=== PATIENT | male | born 1945 | race Caucasian/White ===

== ENCOUNTER 2017-04-30 03:15 | Emergency (ER) | payer MEDICARE, BC ==
--- NOTE | 2017-04-30 09:03 | RAD ---
CHEST 1 VIEW: HISTORY: Partial removal of right upper extremity PICC. FINDINGS: The cardiac silhouette is magnified and enlarged. Patchy bibasilar infiltrates are present. Pulmon ann vasculature is upper limits of normal. At the far right margin of the image, a small cylindrica l density has the appearance of a tip of a PICC catheter overlying the right brachial vein. IMPRESSION: 1. Mild pulmonary vascular congestion. 2. Tip of the right upper extremity PICC appears to overlie the right brachial vein. Please retain position of that catheter or replacement under sterile conditions. POS: [facility]
== END 2017-04-30 05:14 | disposition home or self-care (01) ==
LOC: ERS 03:15
DX: T82.49XA Other complication of vascular dialysis catheter, initial encounter (principal); I25.10 Atherosclerotic heart disease of native coronary artery without angina pectoris; I11.0 Hypertensive heart disease with heart failure; I27.20 Pulmonary hypertension, unspecified; I50.9 Heart failure, unspecified; E11.9 Type 2 diabetes mellitus without complications; Z87.891 Personal history of nicotine dependence; Z79.82 Long term (current) use of aspirin; Z79.899 Other long term (current) drug therapy
CPT/HCPCS: 71010

== ENCOUNTER → 2017-05-01 | Day surgery (SDC) | payer MEDICARE, BC ==
--- NOTE | 2017-05-01 16:05 | SPC ---
RIGHT UPPER EXTREMITY PICC EXCHANGE: Date: 05-01-17 Comparison: 04-12-17 History: 71-year-old male with inadvertently partially removed right upper extremity PICC. FINDINGS: The pre-existing partially removed right upper extremity PICC is prepped and draped in normal steril e fashion. The PICC is cut and a wire is advanced through the pre-existing PICC to the cavoatrial ju nction. The PICC is removed and the new PICC is cut to 39 cm. A peel-away sheath was placed. The cut PICC is advanced over the wire. The wire and peel-away sheath are removed. The tip of the catheter overlies the cavoatrial junction. The catheter flushes well and is ready for use. IMPRESSION: Successful right upper extremity PICC exchange with fluoroscopic guidance. POS: [facility]
== END ==
LOC: SPEC 13:18
PROVIDERS: ATTEND Family Medicine
PROC: 05H933Z Insertion of Infusion Device into Right Brachial Vein, Percutaneous Approach (ICD-10-PCS; principal; 2017-05-01)
DX: Z45.2 Encounter for adjustment and management of vascular access device (principal); E11.22 Type 2 diabetes mellitus with diabetic chronic kidney disease; I13.0 Hypertensive heart and chronic kidney disease with heart failure and stage 1 through stage 4 chronic kidney disease, or unspecified chronic kidney disease; N18.9 Chronic kidney disease, unspecified; I50.23 Acute on chronic systolic (congestive) heart failure; I48.2 Chronic atrial fibrillation; I25.10 Atherosclerotic heart disease of native coronary artery without angina pectoris; G47.33 Obstructive sleep apnea (adult) (pediatric); E78.5 Hyperlipidemia, unspecified; I42.9 Cardiomyopathy, unspecified; Z79.01 Long term (current) use of anticoagulants; Z88.6 Allergy status to analgesic agent; Z88.8 Allergy status to other drugs, medicaments and biological substances; Z91.048 Other nonmedicinal substance allergy status; Z79.899 Other long term (current) drug therapy; Z79.4 Long term (current) use of insulin; Z87.891 Personal history of nicotine dependence; Z99.89 Dependence on other enabling machines and devices
CPT/HCPCS: 36569; C1751

== ENCOUNTER 2017-05-03 15:03 | Inpatient (IN) | payer MEDICARE, BC ==
[2017-05-03 15:56] LABS: Lactic Acid - Sepsis 1.4 mmol/L (0.5-2.2)
[2017-05-03 15:59] LABS: Bilirubin Negative (Negative); Blood, Urine Moderate (Negative); Glucose, Urine (Dipstick) Negative (Negative); Ketone, Urine Negative (Negative); Nitrite Negative (Negative); Protein, Urine (Dipstick) Trace mg/dL (Neg-Trace); Urobilinogen 0.2 mg/dL (0.2-1.0)
[2017-05-03 16:00] LABS: ALT (SGPT) 17 U/L (8-55); AST (SGOT) 19 U/L (5-34); Alkaline Phosphatase 89 U/L (40-150); Anion Gap 18 mmol/L (10-20); BUN (Urea Nitrogen) 92 mg/dL (8.4-25.7); Bilirubin, Total 0.8 mg/dL (0.2-1.2); Calc. Creatinine Clearance 0 mL/min (70-130); Calcium 8.9 mg/dL (7.8-10.44); Carbon Dioxide 26 mmol/L (23-31); Chloride 95 mmol/L (98-107); Estimated GFR-MDRD 17; Globulin 2.7 g/dL (2.4-3.5); Protein, Total 5.7 g/dL (5.8-8.1)
[2017-05-03 16:01] LABS: Bacteria/HPF None Seen HPF (None Seen); Hyaline Casts/LPF 7-10 HYALINE CAST LPF (0-3 Hyaline); RBC/HPF 0-3 HPF (0-3); Squamous Epithelial None Seen HPF (0-3); WBC/HPF 0-3 HPF (0-3)
[2017-05-03 16:01] LABS: #Basophils 0.1 thou/uL (0.0-0.2); #Eosinphils 0.1 thou/uL (0.0-0.7); #Lymphocytes 0.9 thou/uL (1.20-3.40); #Monocytes 0.8 thou/uL (0.11-0.59); #Neutrophils 5.9 thou/uL (1.40-6.50); %Basophils 0.9 % (0.0-1.0); %Eosinophils 1.2 % (0.0-10.0); %Lymphocytes 12.2 % (21.0-51.0); %Monocytes 9.9 % (0.0-10.0); Mean Platelet Volume 8.9 fL (7.4-10.4); Red Blood Cell (RBC) Count 3.81 mill/uL (4.70-6.10); White Blood Cell (WBC) Count 7.8 thou/uL (4.8-10.8)
--- NOTE | 2017-05-03 16:24 | RAD ---
PORTABLE CHEST 1 VIEW: DATE: 05/03/17. TIME: 4:10 p.m. HISTORY: Altered mental status. FINDINGS: Comparison is made with the exam of 04/30/17. There are changes of median sternotomy. The heart is enlarged. Left-sided AICD remains in place. There is a right upper extremity PICC line with tip in the projection of the SVC. No lobar consolid ation, pneumothorax, eloisa pulmonary edema, or large effusions are seen. POS: [facility]
[2017-05-03] MEDS ORDERED: Potassium Chloride 20 MEQ TAB ONE ×2 (17:19)
[2017-05-03] MEDS ORDERED: Furosemide 40 MG/4 ML VIAL ONE (18:46)
--- NOTE | 2017-05-03 20:13 | CT ---
CT HEAD WITHOUT IV CONTRAST 05/03/17 HISTORY: Altered mental status and lethargy. Current infection of foot. History of dementia. COMPARISON: 01/06/17. FINDINGS: Again noted are chronic small vessel ischemic changes and cerebral volume loss. There is a low densi ty area seen within the inferior aspect of the right cerebellar hemisphere suggestive of an infarcti on of indeterminate age but probably more remote in origin. No acute cortical infarction is seen. Th ere is no hemorrhage, mass effect, or midline shift. Ventricular system is normal in size, shape, an d position for the degree of sulcal atrophy. No other interval change. IMPRESSION: 1. Low density area in the right cerebellar hemisphere suggestive of an area of infarction of i ndeterminate age but probably more remote. 2. Chronic small vessel ischemic changes and cerebral volume loss similar to the prior exam. 3. MRI would a more sensitive study of choice for evaluation of a more acute infarction. POS: [facility]
[2017-05-03] MEDS ORDERED: Ondansetron HCl/PF 4 MG/2 ML Vial IVP PRN ×2 (21:33→23:38)
[2017-05-03] MEDS ORDERED: Ondansetron ODT 4 MG TAB SL PRN (21:33)
[2017-05-03] MEDS ORDERED: Acetaminophen 500 MG TAB PO PRN (23:38)
[2017-05-03] MEDS ORDERED: HumaLOG 300 UNITS/3 ML VIAL SC PRN (23:38)
[2017-05-03] MEDS ORDERED: Dextrose 50% Abboject 50 ML SYRINGE SLOW IVP PRN (23:38)
[2017-05-03] MEDS ORDERED: cloNIDine HCl 0.1 MG TAB PO PRN (23:38)
[2017-05-03] MEDS ORDERED: Ondansetron ODT 4 MG TAB PO PRN (23:38)
[2017-05-03] MEDS ORDERED: Dextrose 5% in Water 1,000 ML IV PRN (23:38)
[2017-05-03] MEDS ORDERED: traMADol HCl 50 MG TAB PO PRN (23:38)
[2017-05-03] MEDS ORDERED: Furosemide 40 MG/4 ML VIAL SLOW IVP SCH (23:45)
[2017-05-03] MEDS ORDERED: cefTRIAXone\\ROCEPHIN 2 GM VIAL IVPB SCH (23:59)
[2017-05-04] MEDS ORDERED: Potassium Chloride 20 MEQ TAB PO SCH ×4 (00:15→08:00)
[2017-05-04] MEDS: cefTRIAXone\\ROCEPHIN 2 GM in Sodium Chloride 0.9% 100 ML IVPB SCH (02:07)
--- NOTE | 2017-05-04 02:12 | HP ---
DATE OF ADMISSION: 05/03/2017 PRIMARY CARE PROVIDER: Dr. Jovan Garcia. PRIMARY QUILLER MACHINE FIXER: Dr. Choe. PRIMARY FACTORY PROCESS WORKERS: Dr. Quoc Parker. CHIEF COMPLAINT: Question of altered mental status. HISTORY OF PRESENT ILLNESS: This is a 71-year-old male who presents to [facility] in transfer from [facility] in [place], [place] with complaints of lethargy, inter mittent confusion, and altered mentation as well as approximately 50-60 pound weight gain over the ast 2-3 weeks. Patient's history is significant for congestive heart failure with most recent echoc ardiogram on 03/21/2017 showing an ejection fraction of 25%-30% as well as diastolic dysfunction. P atient has noted increasing swelling of his abdomen, lower extremities with chronic venous stasis, u lcerations requiring Coban leg wraps. Patient has noted increased shortness of breath and difficult y taking deep breath due to the size of his abdomen. Patient's history also complicated with a diag nosis of Enterococcus faecalis bacteremia with suspected pacemaker lead infection, receiving IV Roce phin and ampicillin over the last several weeks. Patient was initially in [facility] receiving physical therapy while also treating the bacteremia. Patient apparently was d ischarged from [facility] home and only remained home for approximately 24 hours before being readm itted back to [facility] due to deconditioning and the family is inability to care for the pat ient's needs. Patient states that his PICC line, which was formally placed in his upper extremity h ad dislodged after being admitted to [facility] and was replaced within the last 48 hours prio r to this evaluation. Patient admits to increasing difficulty with short distance ambulation or mov ement becoming extremely short of breath. Patient has noticed increased swelling of the lower extre mities, making it difficult to ambulate or move. The reports patient had previously weighed in the 270 range approximately 3 weeks prior to this evaluation and currently weighing 334 pounds. In the emergency room, patient received IV Lasix 40 mg x1 dose in addition to normal saline and 40 mEq of potassium chloride. The patient was transferred to the telemetry unit for further evaluation. PAST MEDICAL HISTORY: 1. History of acute on chronic hypoxemic respiratory failure. 2. History of sepsis secondarily the pacemaker lead infection with Enterococcus faecalis, currently treated with IV ampicillin and Rocephin. 3. Acute on chronic systolic congestive heart failure with ejection fraction of 25%-30%. 4. Acute on chronic kidney disease, stage 4. 5. Coronary artery disease. 6. Ischemic cardiomyopathy with ejection fraction of 25%-30%. 7. History of chronic atrial fibrillation with chronic anticoagulation with Eliquis. 8. Diabetes mellitus, type 2, insulin-requiring. 9. Chronic venous stasis dermatitis. 10. History of obstructive sleep apnea on nocturnal CPAP. 11. Hypertension. 12. Morbid obesity. 13. History of bioprosthetic aortic valve replacement. PAST SURGICAL HISTORY: 1. Status post AICD placement. 2. Status post bioprosthetic aortic valve replacement. 3. Status post sinus surgery. 4. Status post PICC line placement. CURRENT MEDICATIONS: 1. Amiodarone 200 mg 1 tab p.o. daily. 2. Ampicillin 2 grams IV q.8 hours. 3. Eliquis 2.5 mg p.o. b.i.d. 4. Enteric coated aspirin 81 mg p.o. daily. 5. Lipitor 20 mg p.o. at bedtime. 6. Coreg 12.5 mg p.o. b.i.d. 7. Finasteride 5 mg one tablet p.o. daily. 8. Glargine insulin 10 units subcutaneously daily. 9. DuoNebs 3 mL nebulized q.i.d. p.r.n. 10. Isosorbide mononitrate 30 mg p.o. b.i.d. 11. Nystatin powder 15 grams topically b.i.d. 12. Potassium chloride 40 mEq p.o. b.i.d. 13. Flomax 0.4 mg 1 tab p.o. daily. 14. Torsemide 20 mg p.o. daily. 15. Ambien 10 mg p.o. at bedtime. 16. Rocephin 2 grams IV q.24 hours. 17. Tramadol 50 mg p.o. daily. ALLERGIES: NSAIDs, COUMADIN, ALLOPURINOL, and ADHESIVE TAPE. FAMILY HISTORY: Positive for diabetes mellitus and hypertension in multiple family members. SOCIAL HISTORY: Patient is , resides in [facility]. 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 Former tobacco use, none currently. No alcohol or illicit drug use. Minimally ambu latory with standby/contact guard assist mobilization for long distance with wheelchair. REVIEW OF SYSTEMS: The following complete review of systems, otherwise negative except as stated pe r HPI: Constitutional: Weight loss or gain, ability to conduct usual activities. Skin: Rash, itching. Eyes: Double vision, pain. ENT/Mouth: Nose bleeding, neck stiffness, pain, tenderness. Cardiovascular: Palpitations, dyspnea on exertion, orthopnea. Respiratory: Shortness of breath, wheezing, cough, hemoptysis, fever, or night sweats. Gastrointestinal: Poor appetite, abdominal pain, heartburn, nausea, vomiting, constipation, or diar minnie. Genitourinary: Urgency, frequency, dysuria, nocturia. Musculoskeletal: Pain, swelling. Neurologic/Psychiatric: Anxiety, depression. Allergy/Immunologic: Skin rash, bleeding tendency. PHYSICAL EXAMINATION: VITAL SIGNS: On admission blood pressure 116/58, pulse 61, respiratory rate 20, temperature 97.5 de grees Fahrenheit, O2 saturation 99% on 2 liters per minute by nasal cannula. GENERAL APPEARANCE: This is a 71-year-old male, alert and oriented x2, pleasant, in no ac lilly distress. HEENT: Pupils are equal, round, and reactive to light and accommodation. Extraocular muscles are i ntact. No scleral icterus, no conjunctival injection. Nares patent. OP is clear. Teeth in fair r epair. NECK: Supple. No cervical adenopathy, no thyromegaly, no carotid bruits, no JVD appreciated. Cerv ical spine with full active and passive range of motion. CHEST: Diminished breath sounds with occasional crackles in the bases. CARDIOVASCULAR EXAM: S1, S2 with distant heart sounds. Left upper chest wall with AICD in place. ABDOMEN: Markedly obese with midline ventral abdominal hernia. Landmarks are difficult to palpate due to the patient's body habitus and edema. Bowel sounds are positive in all four quadrants. : Increased erythema and edema of the scrotal region and groin. MUSCULOSKELETAL: Bilateral pitting edema to the proximal thighs and lower abdomen. Chronic venous stasis changes with superficial ulcerations and erythema of bilateral lower extremities. Pulses dim inished bilaterally at the dorsalis pedis, posterior tibial, and popliteal arteries. SKIN: Exam shows crusting and excoriation and superficial ulceration of bilateral lower extremities consistent with chronic venous stasis changes. Multiple areas of crusting and skin breakdown noted on the toes bilaterally. NEUROLOGIC: Cranial nerves II through XII are grossly intact. Patient is alert and oriented x2. N o other gross focal findings. PERTINENT LABORATORY DATA AND X-RAY FINDINGS: Sodium 136, potassium 2.7, chloride 95, CO2 of 26, BU N 92, creatinine 3.64 with estimated GFR of 17, glucose 143. Lactic acid level 1.4. LFTs within no rmal limits. BNP 6613 previously noted 4170 on 04/14/2017. Albumin 3.0. CBC showed a white blood cell count of 7.8, hemoglobin 11.6, hematocrit 37, MCV 97, platelet count 132 with 76% neutrophils. Foot bacterial culture dated 05/03/2017 showed few budding yeast with Gram-positive cocci in pairs and clusters. Portable chest x-ray dated 05/03/2017 showed chronic changes without acute infiltrate . Left-sided AICD device in place. Right upper extremity PICC line with tip in the projection of t he SVC. CT of the brain without contrast dated 01/31/2017 showed subacute right cerebellar hemisphe re infarct. Chronic ischemic small vessel changes bilaterally. EKG dated 05/03/2017 by ni bhatti shows AV sequential pacemaker with heart rates in the 60s. No acute changes noted. ASSESSMENT AND PLAN: 1. Acute kidney injury on chronic kidney disease, stage 4 with anasarca. We will continue Lasix 40 mg IV b.i.d. We will place on fluid restriction to 1.5 liters per 24 hours. We will consult Nephr ology Service in the a.m. for further evaluation and comanagement. Likely multifactorial given jesica ent's history of chronic kidney disease, stage 4. Repeat creatinine in the a.m. 2. Uremia secondarily to #1. See #1 for treatment as outlined previously. Serial monitoring. 3. Acute on chronic encephalopathy likely secondary to #2. We will continue supportive management and monitor uremia. No current evidence to suggest acute infectious process. 4. Hypokalemia. Continue potassium chloride 40 mEq b.i.d. and repeat potassium level in the a.m. 5. Enterococcus faecalis bacteremia with pacemaker lead infection. We will continue ampicillin 2 g iris IV q.8 hours with addition of Rocephin 2 grams IV q.24 hours. 6. Chronic systolic congestive heart failure with ejection fraction of 25%-30%. Appears compensate d overall with distal edema and no evidence of central edema or pulmonary edema. We will continue L asix therapy as outlined in #1. 7. Recent 2D transthoracic echocardiogram performed showing ejection fraction of 25%-30%. 8. Chronic macrocytic anemia. Stable currently. No evidence to suggest acute blood loss. Suspect secondarily to chronic kidney disease. Repeat CBC in the a.m. 9. Chronic venous stasis dermatitis. We will consult Wound Care service in the a.m. for local woun d care and surveillance during the hospital stay. Continue fluid management and IV Lasix as outline d previously. 10. Chronic anticoagulation with Eliquis. Continue rate control measures. Currently, AV paced. C ontinue Eliquis 2.5 mg p.o. b.i.d. 11. Diabetes mellitus, type 2, insulin-requiring. Resume home insulin regimen. Insulin sliding sc amna for reflexive coverage. ADA diet. 12. Prophylaxis. Sequential compression devices will be held due to severe lower extremity edema. Pepcid 20 mg p.o. b.i.d. Update influenza and pneumonia vaccination prior to discharge. 13. Code status is FULL. Surrogate medical decision maker is patient's spouse.
[2017-05-04] MEDS: HYDROcodone/Acetaminophen 5/325 mg Tablet PO PRN (03:19)
[2017-05-04 05:59] LABS: Anion Gap 16 mmol/L (10-20); BUN (Urea Nitrogen) 91 mg/dL (8.4-25.7); Calc. Creatinine Clearance 41 mL/min (70-130); Calcium 8.9 mg/dL (7.8-10.44); Carbon Dioxide 27 mmol/L (23-31); Chloride 95 mmol/L (98-107); Estimated GFR-MDRD 17
[2017-05-04] MEDS ORDERED: Furosemide 40 MG/4 ML VIAL SLOW IVP SCH (06:00)
[2017-05-04 06:03] LABS: Acanthocytes SLIGHT = 1-5 cells (100X) (None Seen); Band 5 % (5-11); Elliptocytes SLIGHT = 2-5 cells (100X) (0-1/hpf); Hematocrit 37.2 % (42.0-52.0); Hypochromia SLIGHT = 6-15 cells (100X) (0-5/hpf); Mean Platelet Volume 8.7 fL (7.4-10.4); Neutrophil 78 % (42-75); Red Blood Cell (RBC) Count 3.84 mill/uL (4.70-6.10); White Blood Cell (WBC) Count 9.2 thou/uL (4.8-10.8)
[2017-05-04] MEDS ORDERED: Nystatin Cream 15 GM TUBE TOP SCH (09:00)
[2017-05-04] MEDS ORDERED: FLU VACC TS2017-18 (>65YR) 0.5 ML SYRINGE IM ONE (09:00)
[2017-05-04] MEDS: Potassium Chloride 20 MEQ TAB PO SCH ×3 (10:01→16:36)
[2017-05-04] MEDS: Famotidine 20 MG TAB PO SCH (10:02)
[2017-05-04] MEDS: Apixaban 5 MG TAB PO SCH ×2 (10:02→21:33)
[2017-05-04] MEDS: Nystatin Powder 15 GM BOT TOP SCH ×2 (10:03→21:38)
--- NOTE | 2017-05-04 12:15 | PRG ---
DATE OF SERVICE: 05/04/2017 SUBJECTIVE: The patient is seen and examined at bedside. Also, his is present in the room and she is assisting and answering most of my questions. The patient had a bowel movement yesterday. He feels tired, but he is able to answer my simple questions. OBJECTIVE: VITAL SIGNS: Blood pressure is 119/55, respiratory rate is 16, pulse oximetry is 98% on 2 liters by nasal cannula, temperature is 97.8, and pulse is 74 beats per minute. HEENT: His head is atraumatic, normocephalic. Eyes; eyes are bulging out with exophthalmus, but according to the , he has been like this as long as she knows him, for the last almost 50 years. His pupils are responding to light properly. Oral mucosa is moist. NECK: Supple. Thyroid is not palpable. JVD plus in a semi recumbent position, similar bilaterally . LUNGS: Breath sounds slightly diminished at both bases. No wheezing, no rales. CARDIOVASCULAR: S1, S2 distant, no S3, no S4, pacemaker/defibrillator in place. ABDOMEN: Obese, soft, nontender. Bowel sounds are present. EXTREMITIES: 2-3+ peripheral edema similar bilaterally. Venous stasis ulcerations present on his b elow the knee skin in multiple areas. NEUROLOGIC: He is somewhat lethargic, but he is arousable. He answers questions properly. There i s not any motor or neurosensory deficits at this point. LABORATORY DATA: Showed a white count of 9.2, hemoglobin of 11.4, hematocrit 37.2, MCV 96.8, platel et count is 124. Chemistry showed sodium of 135, potassium 2.7, chloride 95, CO2 27, BUN 91, creati nine 3.51, glucose 168. Estimated GFR 17, calcium 8.9. Microbiology showed foot is growing yeast s pecies. Urine no growth. Blood cultures x2 no growth. IMPRESSION AND PLAN: 1. Acute on chronic kidney injury with significant fluid overload and anasarca. The patient was se en by Dr. Choe who recommends to use Lasix 80 mg every 8 hours IV push and fluid restriction as orde red. We will obtain a BMP now and tomorrow morning. 2. Uremia secondary to #1. 3. Acute on chronic encephalopathy which improved, most likely secondary to uremia and I think this is going to get better with time. 4. Hypokalemia. His potassium was down to 2.7 this morning. He is on 40 mEq 3 times a day. 5. Enterococcus faecalis bacteremia with pacemaker lead infection, most likely. The patient is sup posed to continue his Rocephin 2 grams q.24. and ampicillin 2 grams q.8 h. until the middle of Octob er. 6. Chronic systolic congestive heart failure with ejection fraction of 25% , BNP elevated at more t park 6000. We will continue Lasix. 7. Chronic microcytic anemia. 8. Chronic venous stasis dermatitis. Wound Care Service consulted. 9. Chronic anticoagulation with Eliquis. 10. Diabetes mellitus. We will continue insulin: 11. CODE STATUS: Full code. 12. Peptic ulcer disease prophylaxis.
[2017-05-04 12:42] LABS: Anion Gap 19 mmol/L (10-20); BUN (Urea Nitrogen) 91 mg/dL (8.4-25.7); Calc. Creatinine Clearance 40 mL/min (70-130); Calcium 9.1 mg/dL (7.8-10.44); Carbon Dioxide 27 mmol/L (23-31); Chloride 95 mmol/L (98-107); Estimated GFR-MDRD 17
--- NOTE | 2017-05-04 12:51 | CON ---
DATE OF CONSULTATION: 05/04/2017 NEPHROLOGY CONSULTATION REASON FOR CONSULTATION: Elevated creatinine. HISTORY OF PRESENTING ILLNESS: This is a very pleasant 71-year-old gentleman who presented to the hospital with increasing swelling and altered mental status. The patient is seen by me at the [facility] and his creatinine was in the 2-3 and his creatinine increased to 3.7 yesterday and the patient has 4+ edema and significant dyspnea on minimal exertion. PAST MEDICAL HISTORY: Significant for chronic hypoxemic respiratory failure, history of COPD, right-sided heart failure, pacemaker with E. coli infection, congestive heart failure with EF 25%, coronary artery disease, ischemic cardiomyopathy, atrial fibrillation, venous stasis, hypertension, morbid obesity , AICD, bioprosthetic aortic valve, and sinus surgery. HOME MEDICATIONS: List reviewed. HOSPITAL MEDICATIONS: List reviewed. ALLERGIES: Noted. SOCIAL HISTORY: No alcohol or drug use. REVIEW OF SYSTEMS: A 15-point review of systems was performed and was negative except as noted above. GENERAL: Weakness- HEAD: Headache- NECK: No swelling or lumps. NOSE: No epistaxis or discharge. EYES: No diplopia or pain. RESPIRATORY: Dyspnea- CARDIOVASCULAR: Chest pain- GASTROINTESTINAL: Nausea- /[employer]: Hematuria- MUSCULOSKELETAL: No joint pain. NEUROPSYCHIATIC SYSTEMS: No suicidal ideation. No ideation. SKIN: Denies any rash or ulcer. CONSTITUTIONAL: No fever or chills. PHYSICAL EXAMINATION: GENERAL: On examination, patient is awake, alert. VITAL SIGNS: Afebrile, pulse 61, breathing at 16, blood pressure 116/81. GENERAL APPEARANCE AND MENTAL STATUS: Fair. HEAD/NECK: Normocephalic. Atraumatic. EYES: EOMI. No deformity. EARS: Clear. No ulcers. NOSE: Intact. No lesions. MOUTH: Clear. No discharge. THROAT: Clear. No exudate. LUNGS: Clear. No crackles. CARDIAC: S1, S2. No rub. ABDOMEN: Benign. BS+. GENITALIA/RECTUM: Gong absent. BACK/EXTREMITIES: Lower extremities, 4+ edema and chronic evidence of venostasis. NEUROLOGICAL: Alert and motor intact. SKIN: Rash- Bruise- LYMPHATICS: Edema- Ulcer- LABORATORY DATA: Show creatinine 3.5, potassium is 2.7. ASSESSMENT AND RECOMMENDATIONS: 1. Acute kidney injury with chronic kidney disease, most likely due to cardiorenal syndrome. The patient has baseline chronic kidney disease stage 4, would recommend aggressive diuresis. 2. Hypokalemia. Agree with potassium replacement 3. Anemia, stable. 4. Medications based on glomerular filtration rate are appropriate. MTDD
[2017-05-04] MEDS: Furosemide 40 MG/4 ML VIAL SLOW IVP SCH ×2 (13:24→22:32)
[2017-05-04] MEDS: Carvedilol 25 MG TAB PO SCH (16:37)
[2017-05-04 18:36] LABS: Hematocrit 41.9 % (42.0-52.0)
[2017-05-04] MEDS: Atorvastatin Calcium 20 MG TAB PO SCH (21:37)
[2017-05-05] MEDS: cefTRIAXone\\ROCEPHIN 2 GM in Sodium Chloride 0.9% 100 ML IVPB SCH ×2 (01:25→22:41)
[2017-05-05] MEDS: HYDROcodone/Acetaminophen 5/325 mg Tablet PO PRN ×3 (02:47→20:20)
--- NOTE | 2017-05-05 08:53 | PRG ---
DATE OF SERVICE: 05/05/2017 SUBJECTIVE: This is a 71-year-old gentleman being seen for acute kidney injury. The patient denies any nausea, vomiting or chest pain. PHYSICAL EXAMINATION: GENERAL: The patient is awake, alert. VITAL SIGNS: Afebrile, pulse 60, breathing at 16, blood pressure 123/58. OBJECTIVE: See above. Awake, alert, in no acute distress. GENERAL APPEARANCE AND MENTAL STATUS: Fair. HEAD/NECK: Normocephalic. Atraumatic. EYES: EOMI. No deformity. EARS: Clear. No ulcers. NOSE: Intact. No lesions. MOUTH: Clear. No discharge. THROAT: Clear. No exudate. LUNGS: Clear. No crackles. CARDIAC: S1, S2. No rub. ABDOMEN: Benign. BS+. GENITALIA/RECTUM: Gong absent. BACK/EXTREMITIES: Lower extremities have edema. NEUROLOGICAL: Alert and motor intact. SKIN: Rash- Bruise- LYMPHATICS: Edema- Ulcer- LABORATORY: Hemoglobin is pending. Creatinine is pending. ASSESSMENT AND RECOMMENDATIONS: 1. Acute kidney injury with chronic kidney disease stage 4. We will continue diuresis. 2. Hypertension, stable. 3. Anemia, stable. 4. Medications based on GFR are appropriate. No urgent indication for dialysis.
[2017-05-05] MEDS ORDERED: Non-Formulary Item 1 EACH (Insulin Glargine,Hum.Rec.Anlog [Toujeo Solostar] 10 UNIT) SQ SCH (09:00)
[2017-05-05 09:15] LABS: Anion Gap 20 mmol/L (10-20); BUN (Urea Nitrogen) 83 mg/dL (8.4-25.7); Calc. Creatinine Clearance 44 mL/min (70-130); Calcium 8.9 mg/dL (7.8-10.44); Carbon Dioxide 23 mmol/L (23-31); Chloride 98 mmol/L (98-107); Estimated GFR-MDRD 19
[2017-05-05] MEDS: Insulin Detemir 100 UNITS/ML 10 UNITS in Pre-Filled Syringe 1 EACH SC SCH (09:28)
[2017-05-05] MEDS: Furosemide 40 MG/4 ML VIAL SLOW IVP SCH ×3 (09:31→22:40)
[2017-05-05] MEDS: Aspirin 81 mg Enteric Coated Tablet PO SCH (09:34)
[2017-05-05] MEDS: Famotidine 20 MG TAB PO SCH (09:34)
[2017-05-05] MEDS: Carvedilol 25 MG TAB PO SCH ×2 (09:35→17:53)
[2017-05-05] MEDS: Apixaban 5 MG TAB PO SCH ×2 (09:35→20:59)
[2017-05-05] MEDS: Finasteride 5 MG TAB PO SCH (09:36)
[2017-05-05] MEDS: Tamsulosin HCl 0.4 MG CAP PO SCH (09:36)
[2017-05-05] MEDS: Sodium Chloride 0.9% 10 ML ONE ×4 (09:40→22:40)
[2017-05-05] MEDS: Potassium Chloride 20 MEQ TAB PO SCH ×3 (09:40→17:31)
[2017-05-05] MEDS: Nystatin Powder 15 GM BOT TOP SCH ×2 (09:50→21:00)
--- NOTE | 2017-05-05 11:36 | PDOC.PN ---
- Subjective Encounter Start Date: 05/05/17 Encounter Start Time: 11:36 Mr. Henson is complaining of pain in his left knee when he gets up to walk. He also notes some continued dyspnea. His is concerned that his CPAP mask is not fitting properly, and he has been struggling with his ALEXANDRU. - Objective Resuscitation Status: Resuscitation Status FULL:Full Resuscitation MAR Reviewed: Yes Vital Signs & Weight: Vital Signs (12 hours) Temp Pulse Resp BP Pulse Ox 05/05/17 09:23 97.9 F 62 21 H 123/57 L 100 Weight Admit Weight 334 lb Weight 334 lb I&O: 05/04/17 05/05/17 05/06/17 06:59 06:59 06:59 Intake Total 700 2000 Output Total 600 2280 Balance 100 -280 Result Diagrams: 05/04/17 18:30 05/05/17 08:37 Additional Labs: Accuchecks 05/05/17 05/05/17 05/04/17 10:28 06:25 20:50 POC Glucose 224 H 184 H 185 H 05/04/17 05/04/17 16:42 11:12 POC Glucose 168 H 181 H Phys Exam - Physical Examination HEENT: PERRLA Respiratory: no wheezing, no rales, no rhonchi, clear to auscultation bilateral Cardiovascular: RRR, no significant murmur Gastrointestinal: soft, non-tender, positive bowel sounds Musculoskeletal: edema present Massive Pitting edema bilaterally, up to his thighs erythema of both lower extremities Dx/Plan (1) Afib Code(s): I48.91 - UNSPECIFIED ATRIAL FIBRILLATION Status: Acute (2) BRADLEY (acute kidney injury) Code(s): N17.9 - ACUTE KIDNEY FAILURE, UNSPECIFIED Status: Acute (3) Acute on chronic systolic heart failure Code(s): I50.23 - ACUTE ON CHRONIC SYSTOLIC (CONGESTIVE) HEART FAILURE Status : Acute (4) Bacteremia Code(s): R78.81 - BACTEREMIA Status: Acute Comment: Enterococcus faecalis 2/ 2 In Blood Cx 03/09.ID following Corynebacterium species on 2/2 blood cx in 02/06. (5) CAD (coronary artery disease) Code(s): I25.10 - ATHSCL HEART DISEASE OF [place] CORONARY ARTERY W/O ANG PCTRS Status: Chronic (6) Morbid obesity with BMI of 40.0-44.9, adult Code(s): E66.01 - MORBID (SEVERE) OBESITY DUE TO EXCESS CALORIES; Z68.41 - BODY MASS INDEX (BMI) 40.0-44.9, ADULT Status: Chronic (7) ALEXANDRU (obstructive sleep apnea) Code(s): G47.33 - OBSTRUCTIVE SLEEP APNEA (ADULT) (PEDIATRIC) Status: Chronic Comment: CPAP HS (8) Diabetes mellitus type 2 in obese Code(s): E11.69 - TYPE 2 DIABETES MELLITUS WITH OTHER SPECIFIED COMPLICATION; E66.9 - OBESITY, UNSPECIFIED Status: Acute - Plan * Acute on chronic systolic heart failure- slowly improving with Lasix IV * acute renal failure, due to cardiorenal syndrome- also slowly improving with diuresis * ALEXANDRU- continue CAP, and will consult Dr. Okeefe * DM- blood glucose is stable * Enteroccocus Bacteremia- Continue Rocephin and Ampicillin * AFIB- heart rate is controlled, on Eliquis for CVA prevention * CAD-stable * Overall prognosis is guarded,.
[2017-05-05] MEDS: HumaLOG 300 UNITS/3 ML VIAL SC PRN (11:44)
--- NOTE | 2017-05-05 16:46 | SPC ---
RIGHT UPPER EXTREMITY PICC LINE EXCHANGE 05/05/17 INDICATION: Displacement of the previous right sided PICC line placed within the right basilic vein on 05/01/17. TECHNIQUE: Informed consent was obtained. The right upper extremity was prepped and draped in the usual sterile fashion. The previous PICC line was also sterilely prepped and draped. The previous PICC line was t hen cut and a micro guide wire was guided through the catheter to the level of the right atrium. The displaced PICC line was then removed. A new 5 [place] catheter sheath was then placed. A new PICC li ne trimmed to 39 cm was guided over the wire through the sheath. The sheath and wire were removed. T ip of the catheter is seen at the cavoatrial junction. Catheter flushed and aspirated appropriate. T otal fluoroscopic time was 0.1 minutes. Total exposure was 2475 mGy*cm2. IMPRESSION: Successful right upper extremity PICC line exchange. POS: [facility]
[2017-05-05] MEDS ORDERED: Carvedilol 6.25 MG TAB PO SCH (18:15)
--- NOTE | 2017-05-05 20:25 | CON ---
DATE OF SERVICE: 05/05/2017 SERVICE: Pulmonary Medicine. REASON FOR CONSULTATION: Obstructive sleep apnea. HISTORY OF PRESENT ILLNESS: The patient is a 71-year-old white male with past medical history significant for chronic systolic heart failure, stage 4 chronic kidney disease, and morbid obesity. He has horrendous obstructive sleep apnea. That being said, it is really well controlled with BiPAP. Last night, he was using his BiPAP, but his mask and interface broke. He was able to get a new mask and new interface today. He should be back in running with his equipment. Recently, he was discharged from the hospital with bacteremia on an IV antibiotic course. He has been getting IV antibiotics in the outpatient setting for the past month. He has gained over 50 pounds over this period of time. Most of this is water weight. He currently denies any fevers, chills, nausea or vomiting. He has increasing belly swelling, increasing work of breathing, and bilateral lower extremity swelling. This is all actually improving since he has been in the hospital based on what he is suggesting to me. Multiple times, he falls into a deep sleep and having a conversation with him. PAST MEDICAL HISTORY: 1. Chronic systolic heart failure. 2. Chronic kidney disease, stage 4. 3. Coronary artery disease. 4. Atrial fibrillation, chronic. 5. Type 2 diabetes mellitus. 6. Obstructive sleep apnea, severe, but well controlled with CPAP. 7. Hypertension. 8. Dyslipidemia. 9. Pulmonary hypertension, multifactorial. 10. Morbid obesity. 11. History of bioprosthetic aortic valve. PAST SURGICAL HISTORY: 1. AICD placement. 2. Bioprosthetic aortic valve placement. 3. Sinus surgery. 4. PICC line placement, multiple. FAMILY HISTORY: Noncontributory. SOCIAL HISTORY: The patient is and lives in [place], [place]. 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 He has a remote history of smoking tobacco. He quit a long time ago, but had at least [id number] history. He denies any alcohol or illicit drugs. ALLERGIES: NSAIDs, COUMADIN, ALLOPURINOL, ADHESIVE TAPE. MEDICATIONS: List of inpatient medications was reviewed. There are no specific updates were made at this time. REVIEW OF SYSTEMS: General, head, ears, eyes, nose, throat, cardiovascular, respiratory, gastrointestinal, genitourinary, musculoskeletal, neurologic and skin is negative except as mentioned in the HPI. PHYSICAL EXAMINATION: VITAL SIGNS: Afebrile, pulse 61, blood pressure 104/57, respirations 21, and saturation 100% on 3.5 liters nasal cannula. HEART: Normal rate, regular. ABDOMEN: Soft. Distended. Bowel sounds are present. CARDIOVASCULAR: Normal rate. Irregular. LUNGS: Excellent air entry. There is no prolonged expiratory phase. Crackles are present throughout bilateral lung elder. GENITOURINARY: Gong catheter in place. NEUROLOGIC: Grossly nonfocal with the exception of asterixis and frequent falling asleep. MUSCULOSKELETAL: No cyanosis or clubbing. There is diffuse edema and anasarca up to the patient's midchest with 2+ edema. LABORATORY DATA: WBC 9.2, hemoglobin 12.6, platelets 145,000 and stable. Creatinine 3.25 and gently down trending, BUN 83. Basic metabolic profile is otherwise unremarkable. Previous liver function studies were unremarkable. BNP is 6600. Originally potassium was 2.7, but this has improved dramatically. Blood cultures x2 are negative to date. Bacterial culture from the foot is growing presumptive Olga. He also has urine culture that is growing yeast species. ASSESSMENT: 1. Acute hypoxic respiratory failure. 2. Acute on chronic systolic heart failure. 3. Pulmonary hypertension, multifactorial. 4. Obstructive sleep apnea, severe but well controlled with CPAP. 5. Metabolic encephalopathy. 6. Fungal infection of both the foot and urine. PLAN: We will continue to aggressively diurese the patient while he remains here in the hospital. I agree with the very strict fluid restriction. I will initiate antifungal coverage because we are growing fungus in 2 separate locations. Micafungin will be initiated. I will continue to follow along during this hospital stay. Once he clears his encephalopathy, we will need to focus pretty hard on mobility. At this point, he is intermittently too somnolent to do this. FRANKIED
[2017-05-05] MEDS: Micafungin 100 MG in Sodium Chloride 0.9% 100 ML IVPB SCH (20:55)
[2017-05-05] MEDS: Atorvastatin Calcium 20 MG TAB PO SCH (21:00)
[2017-05-06] MEDS: Furosemide 40 MG/4 ML VIAL SLOW IVP SCH ×3 (06:26→22:22)
[2017-05-06 06:38] LABS: Anion Gap 17 mmol/L (10-20); BUN (Urea Nitrogen) 86 mg/dL (8.4-25.7); Calc. Creatinine Clearance 47 mL/min (70-130); Calcium 9.3 mg/dL (7.8-10.44); Carbon Dioxide 28 mmol/L (23-31); Chloride 99 mmol/L (98-107); Estimated GFR-MDRD 21; Magnesium 1.7 mg/dL (1.6-2.6); Phosphorus 4.1 mg/dL (2.3-4.7)
[2017-05-06] MEDS: Insulin Detemir 100 UNITS/ML 10 UNITS in Pre-Filled Syringe 1 EACH SC SCH (09:34)
[2017-05-06] MEDS: Famotidine 20 MG TAB PO SCH (09:35)
[2017-05-06] MEDS: Aspirin 81 mg Enteric Coated Tablet PO SCH (09:35)
[2017-05-06] MEDS: Apixaban 5 MG TAB PO SCH ×2 (09:35→20:22)
[2017-05-06] MEDS: Tamsulosin HCl 0.4 MG CAP PO SCH (09:35)
[2017-05-06] MEDS: Finasteride 5 MG TAB PO SCH (09:36)
[2017-05-06] MEDS: Carvedilol 25 MG TAB PO SCH ×2 (09:36→16:44)
[2017-05-06] MEDS: Nystatin Powder 15 GM BOT TOP SCH ×2 (09:36→20:22)
--- NOTE | 2017-05-06 10:17 | PRG ---
DATE OF SERVICE: 05/06/2017 SUBJECTIVE: This 71-year-old gentleman being seen for acute kidney injury. The patient denies any nausea, vomiting or chest pain. PHYSICAL EXAMINATION: GENERAL: Patient is awake, alert. VITAL SIGNS: Afebrile, pulse 60, breathing at 16, blood pressure 117/57. GENERAL APPEARANCE AND MENTAL STATUS: Fair. HEAD/NECK: Normocephalic. Atraumatic. EYES: EOMI. No deformity. EARS: Clear. No ulcers. NOSE: Intact. No lesions. MOUTH: Clear. No discharge. THROAT: Clear. No exudate. LUNGS: Clear. No crackles. CARDIAC: S1, S2. No rub. ABDOMEN: Benign. BS+. GENITALIA/RECTUM: Gong absent. BACK/EXTREMITIES: Edema 0+ Ulcer- NEUROLOGICAL: Alert and motor intact. SKIN: Rash- Bruise- LYMPHATICS: Edema- Ulcer- LABORATORY DATA: Show creatinine 2.9. ASSESSMENT AND RECOMMENDATIONS: 1. Acute kidney injury with chronic kidney disease, improved. 2. Hypertension, stable. 3. Anemia, stable. 4. Congestive heart failure. Continue diuresis. No indication for dialysis.
--- NOTE | 2017-05-06 10:52 | PDOC.PN ---
- Subjective Encounter Start Date: 05/06/17 Encounter Start Time: 10:50 Mr. Henson is a little more alert today. He is staying awake a little longer in between sentences. - Objective Resuscitation Status: Resuscitation Status FULL:Full Resuscitation MAR Reviewed: Yes Vital Signs & Weight: Vital Signs (12 hours) Temp Pulse Resp BP Pulse Ox 05/06/17 07:45 97.7 F 60 20 117/57 L 100 05/06/17 04:40 97.5 F L 62 20 117/58 L 100 05/06/17 00:00 97.4 F L 67 20 104/59 L 100 Weight Admit Weight 334 lb Weight 322 lb I&O: 05/05/17 05/06/17 05/07/17 06:59 06:59 06:59 Intake Total 1999 1160 Output Total 2280 1130 Balance -280 30 Result Diagrams: 05/04/17 18:30 05/06/17 05:32 Additional Labs: Accuchecks 05/06/17 05/05/17 05/05/17 05:48 20:18 16:21 POC Glucose 137 H 127 H 135 H Phys Exam - Physical Examination HEENT: PERRLA Respiratory: no wheezing, no rales Cardiovascular: RRR, no significant murmur Gastrointestinal: soft, non-tender, positive bowel sounds Musculoskeletal: edema present 3-4 + pitting edema, mild erythema in both lower extremities and feet Dx/Plan (1) Afib Code(s): I48.91 - UNSPECIFIED ATRIAL FIBRILLATION Status: Acute (2) BRADLEY (acute kidney injury) Code(s): N17.9 - ACUTE KIDNEY FAILURE, UNSPECIFIED Status: Acute (3) Acute on chronic systolic heart failure Code(s): I50.23 - ACUTE ON CHRONIC SYSTOLIC (CONGESTIVE) HEART FAILURE Status : Acute (4) Bacteremia Code(s): R78.81 - BACTEREMIA Status: Acute Comment: Enterococcus faecalis 2/ 2 In Blood Cx 03/09.ID following Corynebacterium species on 2/2 blood cx in 02/06. (5) CAD (coronary artery disease) Code(s): I25.10 - ATHSCL HEART DISEASE OF [place] CORONARY ARTERY W/O ANG PCTRS Status: Chronic (6) Morbid obesity with BMI of 40.0-44.9, adult Code(s): E66.01 - MORBID (SEVERE) OBESITY DUE TO EXCESS CALORIES; Z68.41 - BODY MASS INDEX (BMI) 40.0-44.9, ADULT Status: Chronic (7) ALEXANDRU (obstructive sleep apnea) Code(s): G47.33 - OBSTRUCTIVE SLEEP APNEA (ADULT) (PEDIATRIC) Status: Chronic Comment: CPAP HS (8) Diabetes mellitus type 2 in obese Code(s): E11.69 - TYPE 2 DIABETES MELLITUS WITH OTHER SPECIFIED COMPLICATION; E66.9 - OBESITY, UNSPECIFIED Status: Acute - Plan * Anasarca due to acute on chronic systolic heart failure, and ALEXANDRU. Continue to diurese * He is down 12 pounds from yesterday * ALEXANDRU- Pulmonology input appreciated * Acute renal failure- improving with diuresis * DM- blood glucose is stable. * AFIB- heart rate is stable, * Urine culture is positive for yeast, and a culture from his foot is positive for Olga- agree with Micofungin * Cellulitis of the lower extremities- continue Rocephin 1-2 more days then transition to oral antibiotics * Mobilize as tolerated
[2017-05-06] MEDS: Sodium Chloride 0.9% 10 ML ONE ×2 (14:01→20:23)
[2017-05-06] MEDS ORDERED: Heparin 1,000 UNITS/ML VIAL ONE (15:36)
[2017-05-06] MEDS: HumaLOG 300 UNITS/3 ML VIAL SC PRN (16:44)
--- NOTE | 2017-05-06 18:38 | PRG ---
DATE OF SERVICE: 05/06/2017 SERVICE: Pulmonary Medicine. INTERVAL HISTORY: The patient is doing a little better today. He is not nearly asleep and his ment ation improved. He tells me that he was not using his BiPAP again last night, but nursing suggested that he was. He suggested that his concentrator was broken. He was able to use his BiPAP. That nadiya montalvo said, he is in the hospital and his concentrator is not here. He does have a little bit of con fusion. He denies any current shortness of breath or chest discomfort. He indicates he lost 14 shelbi nds of water weight and is feeling a little bit less distended. PHYSICAL EXAMINATION: VITAL SIGNS: Afebrile, pulse 61, blood pressure 104/58, respirations 18, saturation 98% on 3 liters nasal cannula. GENERAL: Patient is awake and alert, in no apparent distress. LUNGS: Decent air entry. There is no prolonged expiratory phase. I do not appreciate any wheezing , rhonchi, or crackles, although body habitus truthfully precludes evaluation. HEART: Normal rate, regular. ABDOMEN: Soft. Distended. Bowel sounds are positive. MUSCULOSKELETAL: No cyanosis or clubbing. There is diffuse 3-4+ pitting throughout. GENITOURINARY: Gong catheter in place. NEUROLOGIC: Grossly nonfocal. LABORATORY DATA: Creatinine 2.95 and gently improving. BUN 86 and up trending. Sodium 140 and als o up trending. Magnesium and phosphorus were all within normal limits. Yeast is growing in both th e foot culture and the urine culture. Blood cultures were negative to date. ASSESSMENT: 1. Acute hypoxic respiratory failure, improving. 2. Acute on chronic systolic heart failure. 3. Pulmonary hypertension, multifactorial. 4. Obstructive sleep apnea, severe, well controlled with CPAP therapy. 5. Metabolic encephalopathy, improving. 6. Fungal infection of the foot and urine. PLAN: Continue supportive care including aggressive diuretics. We may need to start some free wate r here soon as I believe his sodium is going to start go above the normal limits. Continue antibiot ics including micafungin. These 2 things likely represent contamination. Pulmonary will continue t o follow while the patient remains in house.
[2017-05-06] MEDS: Micafungin 100 MG in Sodium Chloride 0.9% 100 ML IVPB SCH (20:21)
[2017-05-06] MEDS: Atorvastatin Calcium 20 MG TAB PO SCH (20:22)
[2017-05-06] MEDS: cefTRIAXone\\ROCEPHIN 2 GM in Sodium Chloride 0.9% 100 ML IVPB SCH (22:22)
[2017-05-07] MEDS: HYDROcodone/Acetaminophen 5/325 mg Tablet PO PRN ×2 (04:24→09:48)
[2017-05-07] MEDS: Furosemide 40 MG/4 ML VIAL SLOW IVP SCH ×3 (05:29→22:43)
[2017-05-07 06:39] LABS: Anion Gap 15 mmol/L (10-20); BUN (Urea Nitrogen) 83 mg/dL (8.4-25.7); Calc. Creatinine Clearance 51 mL/min (70-130); Carbon Dioxide 29 mmol/L (23-31); Chloride 99 mmol/L (98-107); Estimated GFR-MDRD 23; Magnesium 1.7 mg/dL (1.6-2.6); Phosphorus 3.6 mg/dL (2.3-4.7)
[2017-05-07] MEDS: Aspirin 81 mg Enteric Coated Tablet PO SCH (09:41)
[2017-05-07] MEDS: Apixaban 5 MG TAB PO SCH ×2 (09:41→20:20)
[2017-05-07] MEDS: Carvedilol 25 MG TAB PO SCH ×2 (09:42→17:02)
[2017-05-07] MEDS: Tamsulosin HCl 0.4 MG CAP PO SCH (09:42)
[2017-05-07] MEDS: Famotidine 20 MG TAB PO SCH (09:42)
[2017-05-07] MEDS: Finasteride 5 MG TAB PO SCH (09:42)
[2017-05-07] MEDS: Nystatin Powder 15 GM BOT TOP SCH ×2 (09:43→20:21)
[2017-05-07] MEDS: Insulin Detemir 100 UNITS/ML 10 UNITS in Pre-Filled Syringe 1 EACH SC SCH (09:43)
[2017-05-07] MEDS: Sodium Chloride 0.9% 10 ML ONE ×2 (09:44→14:31)
[2017-05-07] MEDS ORDERED: Potassium Chloride 20 MEQ TAB PO SCH ×2 (10:15→10:30)
--- NOTE | 2017-05-07 10:29 | PDOC.PN ---
- Subjective Encounter Start Date: 05/07/17 Encounter Start Time: 10:28 Mr. Henson is breathing better. He is complaining of some pain in his knees. He was able to walk some without much dyspnea. - Objective Resuscitation Status: Resuscitation Status FULL:Full Resuscitation MAR Reviewed: Yes Vital Signs & Weight: Vital Signs (12 hours) Temp Pulse Resp BP BP Pulse Ox 05/07/17 08:55 98.2 F 60 19 104/51 L 100 05/07/17 05:25 126/58 L 05/07/17 04:05 97.3 F L 61 20 102/57 L 100 05/07/17 00:56 97.9 F 60 20 106/57 L 100 Weight Admit Weight 334 lb Weight 325 lb I&O: 05/06/17 05/07/17 05/08/17 06:59 06:59 06:59 Intake Total 1160 2050 Output Total 1130 2100 Balance 30 -50 Result Diagrams: 05/04/17 18:30 05/07/17 05:43 Additional Labs: Accuchecks 05/07/17 05/06/17 05/06/17 05:27 20:15 16:13 POC Glucose 88 155 H 202 H 05/06/17 11:15 POC Glucose 160 H Phys Exam - Physical Examination HEENT: PERRLA + rales at the bases, occasional wheeze Cardiovascular: RRR, no significant murmur Gastrointestinal: soft, non-tender, positive bowel sounds Musculoskeletal: edema present massive pedal edema Dx/Plan (1) Afib Code(s): I48.91 - UNSPECIFIED ATRIAL FIBRILLATION Status: Acute (2) BRADLEY (acute kidney injury) Code(s): N17.9 - ACUTE KIDNEY FAILURE, UNSPECIFIED Status: Acute (3) Acute on chronic systolic heart failure Code(s): I50.23 - ACUTE ON CHRONIC SYSTOLIC (CONGESTIVE) HEART FAILURE Status : Acute (4) Bacteremia Code(s): R78.81 - BACTEREMIA Status: Acute Comment: Enterococcus faecalis 2/ 2 In Blood Cx 03/09.ID following Corynebacterium species on 2/2 blood cx in 02/06. (5) CAD (coronary artery disease) Code(s): I25.10 - ATHSCL HEART DISEASE OF [place] CORONARY ARTERY W/O ANG PCTRS Status: Chronic (6) Morbid obesity with BMI of 40.0-44.9, adult Code(s): E66.01 - MORBID (SEVERE) OBESITY DUE TO EXCESS CALORIES; Z68.41 - BODY MASS INDEX (BMI) 40.0-44.9, ADULT Status: Chronic (7) ALEXANDRU (obstructive sleep apnea) Code(s): G47.33 - OBSTRUCTIVE SLEEP APNEA (ADULT) (PEDIATRIC) Status: Chronic Comment: CPAP HS (8) Diabetes mellitus type 2 in obese Code(s): E11.69 - TYPE 2 DIABETES MELLITUS WITH OTHER SPECIFIED COMPLICATION; E66.9 - OBESITY, UNSPECIFIED Status: Acute - Plan * Acute on chronic systolic heart failure- slowly improving with diureses * Acute renal failure- improved * ALEXANDRU- stable * Severe deconditioning- continue PT * Strongly considering jail placement, and then possible Hospice at home if he is stronger and can help monitor at home.
--- NOTE | 2017-05-07 12:04 | PRG ---
DATE OF SERVICE: 05/07/2017 SUBJECTIVE: A 71-year-old gentleman being seen for acute kidney injury. The patient denies any aicha sea, vomiting or chest pain. OBJECTIVE: GENERAL: Patient is awake and alert. VITAL SIGNS: Afebrile, pulse 60, breathing at 16 and blood pressure 104/59. HEAD/NECK: Normocephalic. Atraumatic. EYES: EOMI. No deformity. EARS: Clear. No ulcers. NOSE: Intact. No lesions. MOUTH: Clear. No discharge. THROAT: Clear. No exudate. LUNGS: Clear. No crackles. CARDIAC: S1, S2. No rub. ABDOMEN: Benign. BS+. GENITALIA/RECTUM: Gong absent. BACK/EXTREMITIES: 4+ edema. NEUROLOGICAL: Alert and motor intact. SKIN: Rash-. Bruise-. LYMPHATICS: Edema-. Ulcer-. LABORATORY DATA: Showed creatinine is 2.3. ASSESSMENT AND RECOMMENDATIONS: 1. Acute kidney injury with chronic kidney disease, stage IV, stable. 2. Hypertension, stable. 3. Hypokalemia. Recommend high potassium diet. 4. Anemia, stable. No indication for dialysis.
[2017-05-07] MEDS ORDERED: Magnesium 2 GM/NS 0.9% 100 ML 2 GM in Premix Bag 1 BAG IVPB SCH (16:45)
[2017-05-07] MEDS ORDERED: Sodium Chloride 0.9% 10 ML ONE (16:50)
[2017-05-07] MEDS: Potassium Chloride 20 MEQ TAB PO SCH (17:01)
[2017-05-07] MEDS: HumaLOG 300 UNITS/3 ML VIAL SC PRN (17:10)
--- NOTE | 2017-05-07 17:13 | PRG ---
DATE OF SERVICE: 05/07/2017 SERVICE: Pulmonary Medicine. INTERVAL HISTORY: The patient is doing fine from a cardiovascular and respiratory standpoint. He d enies any current shortness of breath. His lower extremity swelling and belly distention is actuall y improving a little bit. Otherwise, there has been no interval change to his condition. His menta tion is slightly improved today. PHYSICAL EXAMINATION: VITAL SIGNS: Afebrile, pulse 60, blood pressure 104/51, respirations 20, saturation 100% on 2 liter s nasal cannula. GENERAL: The patient is awake and alert, in no apparent distress. LUNGS: Excellent air entry. There is crackles present. No prolonged expiratory phase or wheezing is appreciated. HEART: Normal rate, regular. ABDOMEN: Soft, distended. Bowel sounds are present. MUSCULOSKELETAL: No cyanosis or clubbing. There is diffuse 2-3+ edema throughout. GENITOURINARY: Gong catheter in place. NEUROLOGIC: Grossly nonfocal. He does not demonstrate asterixis today. LABORATORY DATA: Potassium 3.0 and trending downward once again. BUN 83 and stable. Creatinine 2. 71, which is also down trending. Magnesium and phosphorus fall within normal limits. ASSESSMENT: 1. Acute hypoxic respiratory failure, resolving. 2. Acute on chronic systolic heart failure. 3. Pulmonary hypertension, multifactorial. 4. Obstructive sleep apnea, severe, well controlled with CPAP therapy. 5. Metabolic encephalopathy, resolving. PLAN: We will continue supportive care, which is essentially at this point just includes aggressive diuretics. Once the sodium starts to trend upward, he may need little bit of free water. Empiric antibiotics will be continued. I will continue to follow while the patient remains in house.
[2017-05-07] MEDS: Micafungin 100 MG in Sodium Chloride 0.9% 100 ML IVPB SCH (20:20)
[2017-05-07] MEDS: Atorvastatin Calcium 20 MG TAB PO SCH (20:21)
--- NOTE | 2017-05-07 20:25 | PRG ---
DATE OF SERVICE: 05/06/2017 SUBJECTIVE: Mr. Henson states he feels better. He has diuresed. He has lost 12 pounds, although it is likely due to . His I's and O's do not correspond with his weight change. OBJECTIVE: VITAL SIGNS: Blood pressure 131/58, pulse 60, temperature 97.6. LUNGS: Crackles bilaterally, although improved. HEART: Regular rate and rhythm. ABDOMEN: Soft, nontender, nondistended, obese. EXTREMITIES: No significant change. IMPRESSION: 1. Acute on chronic systolic heart failure. 2. Severe pulmonary hypertension. 3. Severe obstructive sleep apnea. RECOMMENDATIONS: 1. [employer] came by to try and resynchronize his defibrillator. Unfortunately, this was difficult due to a severe cardiomyopathy. 2. At this point, we will continue with diuresis. I had a long discussion with his about long -term consequences and management. I have discussed the hospice versus inpatient and the patient wa s transferred to [facility]. We have tried in the past to have an outpatient workup for severe pulmona ry hypertension, which is likely multifactorial. His aortic valve area has been 1.2 in the past on angiogram performed in 09/2016. She would like to discuss further with hospice in a.m. 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
--- NOTE | 2017-05-07 20:31 | CON ---
DATE OF CONSULTATION: 05/05/2017 DATE OF CONSULTATION: Recurrent CHF and shortness of breath. 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 He has a history of systolic heart failure, CAD in addition to moderate a ortic stenosis. He also has a history of severe pulmonary hypertension and obstructive sleep apnea. Mr. Henson again is readmitted for congestive heart failure-like symptoms. There has been some tary indiscretion. After discussion with his , it also appears he has had some indiscretion wit h his CPAP. PAST MEDICAL HISTORY: As above including chronic kidney disease, diabetes mellitus, hypertension, h yperlipidemia, severe pulmonary hypertension, obesity, bioprosthetic aortic valve replacement, AICD placement, previous sinus surgery. SOCIAL HISTORY: No current tobacco or alcohol use. ALLERGIES: NONSTEROIDAL THERAPY, COUMADIN and ALLOPURINOL. REVIEW OF SYSTEMS: Ten-point review of systems is reviewed and is as above, negative. PHYSICAL EXAMINATION: VITAL SIGNS: Blood pressure 112/57, pulse 60, temperature 97.1. GENERAL: Patient is a pleasant male who is in no acute distress. The patient does appear older mahsa n his stated age. NEUROLOGIC: The patient is alert and oriented times 3 with no focal neurologic deficits. HEENT: Sclerae without icterus. Mouth has moist mucous membranes with normal pallor. NECK: No JVD. Carotid upstroke brisk. No bruits bilaterally. LUNGS: Crackles bilaterally. BACK: No scoliosis or kyphosis. CARDIAC: Regular rate and rhythm with normal S1 and S2. No S3 or S4 noted. No significant rubs, m urmurs, thrills, or gallops noted throughout the precordium. PMI is not displaced. There is no par asternal heave. ABDOMEN: Soft, nontender, nondistended. No peritoneal signs present. No hepatosplenomegaly. No a bnormal striae. EXTREMITIES: 3+ pitting edema with discoloration noted to the lower extremities. SKIN: No gross abnormalities. PERTINENT LABS: Hemoglobin 11.6, potassium 2.7, creatinine 3.6. IMPRESSION: 1. Acute on chronic systolic heart failure. 2. Coronary artery disease. 3. Severe obstructive sleep apnea. 4. Severe pulmonary hypertension. RECOMMENDATIONS: At this point, I would recommend continued medical therapy. We would recommend IV Lasix and may need metolazone. I have also looked his EKG. His QRS is estimated to 180 milliseconds. We will consult with [employer] to see if can time his LV lead for better LV synchrony.
--- NOTE | 2017-05-07 20:36 | PRG ---
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 He has d iuresed. PHYSICAL EXAMINATION: VITAL SIGNS: Blood pressure 105/57, pulse 60, temperature 97.4. I's and O's -50 but appears to hav e gained 3 pounds. LUNGS: Minimal crackles bilaterally. CARDIAC: Regular rate and rhythm. ABDOMEN: Distended. EXTREMITIES: No significant changes. PERTINENT LABORATORY DATA: Creatinine 2.7, potassium 3.0. IMPRESSION: 1. Acute on chronic systolic heart failure. 2. Severe pulmonary hypertension. 3. Coronary artery disease. 4. Moderate aortic stenosis. 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 They w ould like to discuss it amongst themselves. We will have hospice come by in the morning to discuss options. After discussing options with hospice, if it was decided to proceed with inpatient transfe r, we will discuss with [facility] for potential transfer. 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 He continued to have daytime somnolence, which likely exacerbates his severe pulmon ann hypertension.
[2017-05-07] MEDS: cefTRIAXone\\ROCEPHIN 2 GM in Sodium Chloride 0.9% 100 ML IVPB SCH (23:04)
[2017-05-08] MEDS: Furosemide 40 MG/4 ML VIAL SLOW IVP SCH ×3 (06:02→23:56)
[2017-05-08 06:28] LABS: Anion Gap 16 mmol/L (10-20); BUN (Urea Nitrogen) 77 mg/dL (8.4-25.7); Calc. Creatinine Clearance 54 mL/min (70-130); Calcium 9.1 mg/dL (7.8-10.44); Carbon Dioxide 30 mmol/L (23-31); Chloride 101 mmol/L (98-107); Estimated GFR-MDRD 24
[2017-05-08] MEDS: Carvedilol 25 MG TAB PO SCH ×2 (09:05→16:56)
[2017-05-08] MEDS: Potassium Chloride 20 MEQ TAB PO SCH ×2 (09:07→16:56)
[2017-05-08] MEDS: Tamsulosin HCl 0.4 MG CAP PO SCH (09:08)
[2017-05-08] MEDS: Aspirin 81 mg Enteric Coated Tablet PO SCH (09:08)
[2017-05-08] MEDS: Finasteride 5 MG TAB PO SCH (09:09)
[2017-05-08] MEDS: Famotidine 20 MG TAB PO SCH (09:09)
[2017-05-08] MEDS: Apixaban 5 MG TAB PO SCH ×2 (09:10→20:29)
[2017-05-08] MEDS: Nystatin Powder 15 GM BOT TOP SCH ×2 (09:13→23:02)
[2017-05-08] MEDS: Insulin Detemir 100 UNITS/ML 10 UNITS in Pre-Filled Syringe 1 EACH SC SCH (09:13)
--- NOTE | 2017-05-08 09:22 | PDOC.PN ---
- Subjective Encounter Start Date: 05/08/17 Encounter Start Time: 09:20 Mr. Henson says he had trouble with the BiPAP last night. He denies dyspnea. - Objective Resuscitation Status: Resuscitation Status FULL:Full Resuscitation MAR Reviewed: Yes Vital Signs & Weight: Vital Signs (12 hours) Temp Pulse Resp BP BP Pulse Ox 05/08/17 04:00 97.6 F 65 20 106/56 L 100 05/08/17 00:00 97.9 F 60 20 94/45 L 100 Weight Admit Weight 334 lb Weight 326 lb 1.6 oz I&O: 05/07/17 05/08/17 05/09/17 06:59 06:59 06:59 Intake Total 2049 2134 Output Total 2099 2045 Balance -50 89 Result Diagrams: 05/04/17 18:30 05/08/17 05:27 Additional Labs: Accuchecks 05/07/17 05/07/17 05/07/17 20:31 16:52 11:26 POC Glucose 141 H 168 H 190 H 05/07/17 09:36 POC Glucose 183 H Phys Exam - Physical Examination HEENT: PERRLA Respiratory: no wheezing, no rales, no rhonchi, clear to auscultation bilateral Cardiovascular: RRR, no significant murmur Gastrointestinal: soft, positive bowel sounds Musculoskeletal: edema present 3-4 + Pitting edema bilaterally Neurological: non-focal Dx/Plan (1) Afib Code(s): I48.91 - UNSPECIFIED ATRIAL FIBRILLATION Status: Acute (2) BRADLEY (acute kidney injury) Code(s): N17.9 - ACUTE KIDNEY FAILURE, UNSPECIFIED Status: Acute (3) Acute on chronic systolic heart failure Code(s): I50.23 - ACUTE ON CHRONIC SYSTOLIC (CONGESTIVE) HEART FAILURE Status : Acute (4) Bacteremia Code(s): R78.81 - BACTEREMIA Status: Acute Comment: Enterococcus faecalis 2/ 2 In Blood Cx 03/09.ID following Corynebacterium species on 2/2 blood cx in 02/06. (5) CAD (coronary artery disease) Code(s): I25.10 - ATHSCL HEART DISEASE OF [place] CORONARY ARTERY W/O ANG PCTRS Status: Chronic (6) Morbid obesity with BMI of 40.0-44.9, adult Code(s): E66.01 - MORBID (SEVERE) OBESITY DUE TO EXCESS CALORIES; Z68.41 - BODY MASS INDEX (BMI) 40.0-44.9, ADULT Status: Chronic (7) ALEXANDRU (obstructive sleep apnea) Code(s): G47.33 - OBSTRUCTIVE SLEEP APNEA (ADULT) (PEDIATRIC) Status: Chronic Comment: CPAP HS (8) Diabetes mellitus type 2 in obese Code(s): E11.69 - TYPE 2 DIABETES MELLITUS WITH OTHER SPECIFIED COMPLICATION; E66.9 - OBESITY, UNSPECIFIED Status: Acute - Plan * Acute on chronic systolic and diastolic heart failure- continue Lasix * AFIB- his heart rate is stable. * Bacteremia- continue Ampicillin and Rocephin * DM- blood glucoe is stable * PT evaluation * Case management has been consulted for Hospice Consult
[2017-05-08] MEDS: HYDROcodone/Acetaminophen 5/325 mg Tablet PO PRN ×2 (10:23→23:09)
--- NOTE | 2017-05-08 10:52 | PRG ---
DATE OF SERVICE: 05/08/2017 SUBJECTIVE: Patient was seen and examined at bedside and overnight events noted. Patient denies an y shortness of breath or chest pain or palpitation. No history of nausea or vomiting or diarrhea or fever or chills or cramps. OBJECTIVE: GENERAL: This is a well-built male in no apparent distress. VITAL SIGNS: Temperature 97.9, pulse 60, respiratory rate 18, and blood pressure 106/56. HEENT: Atraumatic, normocephalic. Oral mucosa is moist. NECK: Supple. CARDIOVASCULAR: S1 and S2 heard, rate and rhythm regular. RESPIRATORY: Clear to auscultation. GASTROINTESTINAL: Abdomen is soft. MUSCULOSKELETAL: No tenderness, no edema. DERMATOLOGIC: No skin rash. NEUROLOGIC: Alert and awake and oriented X3. No focal neurologic deficits. Moving all the extremi ties. PSYCHIATRIC: Mood and affect normal. LABORATORY DATA: Potassium is 3.1, BUN is 77, creatinine is 2.0. ASSESSMENT AND PLAN: 1. Acute kidney injury on chronic kidney disease stage 4. Renal function seems to be stable. 2. Hypokalemia. 3. Hypertension. 4. Anemia. 5. Overall prognosis is very poor. Follow with Cardiology and Pulmonology. 6. Severe pulmonary hypertension. 7. Cardiorenal syndrome. 8. We will monitor renal function closely.
--- NOTE | 2017-05-08 12:32 | PRG ---
DATE OF SERVICE: 05/08/2017 SERVICE: Pulmonary Medicine. INTERVAL HISTORY: The patient is doing very poorly from a respiratory standpoint as well as mentati on. He currently denies any fevers, chills, nausea, vomiting or chest discomfort. He is breathing more comfortably and he indicates his lower extremity swelling is improving slightly with all the di uretics. Otherwise, there has been no interval change to his condition. PHYSICAL EXAMINATION: VITAL SIGNS: Afebrile, pulse 63, blood pressure 109/53, respirations 18, saturation 100% on 2 liter s nasal cannula. GENERAL: The patient is awake and alert. He is in no apparent distress. He does drift off to slee p fairly easily without significant stimulation. This is with an encephalopathic profile. LUNGS: Good air entry bilaterally. No prolonged expiratory phase or wheezing. Dependent crackles are present. HEART: Normal rate and regular. ABDOMEN: Soft, nontender, and nondistended. Bowel sounds positive. MUSCULOSKELETAL: No cyanosis or clubbing. There is diffuse 3+ throughout. GENITOURINARY: Gong catheter in place. NEUROLOGIC: Grossly nonfocal. LABORATORY DATA: Creatinine 2.61, BUN 77 and gently down trending. Sodium 144, potassium 3.1. TSH is 15. Urine culture and foot culture are growing Olga albicans. Blood cultures x2 are unremar kable. ASSESSMENT: 1. Acute hypoxic respiratory failure, resolving. 2. Acute on chronic systolic heart failure. 3. Pulmonary hypertension, multifactorial. 4. Obstructive sleep apnea, well controlled with continuous positive airway pressure therapy. 5. Metabolic encephalopathy, resolving. 6. Aortic stenosis. 7. Elevated TSH. PLAN: I will get T3 and T4 level to make certain that he does not have a hyperthyroid syndrome. If the sodium continues to trend upward, we are going to need to start a little bit of D5 water with L asix in order to get sodium off. Pulmonary will continue to follow while the patient remains inhous e. Ultimately, his long-term prognosis is quite poor. He has multiple comorbidities that are all e xacerbating each others decline. Palliative care is currently talking to him, which I think is appr opriate.
[2017-05-08 15:25] LABS: Free T3 Less than 1.00 pg/mL (1.71-3.71)
--- NOTE | 2017-05-08 15:46 | PRG ---
DATE OF SERVICE: 05/08/2017 HISTORY OF PRESENT ILLNESS: Mr. Henson's status is unchanged. He continues to be short of breath with little exertion. He was seen with his CPAP on his forehead. After talking with Dr. Henson, fortino wells fell asleep several times. There has been a compliance issues. He did visit with hospice and states he is waiting to talk to his children before making a decision. He would like to wait on transferring to [facility] as an option. PHYSICAL EXAMINATION: VITAL SIGNS: Blood /52, pulse 60, temperature 98. GENERAL: He is obese. NEUROLOGIC: The patient is alert and oriented times 3 with no focal neurologic deficits. HEENT: Sclerae without icterus. Mouth has moist mucous membranes with normal pallor. NECK: No JVD. Carotid upstroke brisk. No bruits bilaterally. LUNGS: Clear to auscultation with unlabored respirations. BACK: No scoliosis or kyphosis. CARDIAC: Regular rate and rhythm with normal S1 and S2. No S3 or S4 noted. No significant rubs, m urmurs, thrills, or gallops noted throughout the precordium. PMI is not displaced. There is no par asternal heave. ABDOMEN: Soft, nontender, nondistended. No peritoneal signs present. No hepatosplenomegaly. No a bnormal striae. EXTREMITIES: No significant change. SKIN: No gross abnormalities. PERTINENT LABORATORY DATA: Hemoglobin 12.6, creatinine 2.61. IMPRESSION: 1. Acute on chronic systolic heart failure. 2. Coronary artery disease. 3. Moderate aortic stenosis. 4. Severe pulmonary hypertension. 5. Severe obstructive sleep apnea. RECOMMENDATIONS: At this point, options continued to be limited. Would continue current course. Fortino wells is on antibiotic therapy. Continue CPAP. I stressed the importance. We will await for final dec ision by family. At this point, it would certainly be reasonable to proceed with hospice to help de crease his readmission.
[2017-05-08] MEDS: Micafungin 100 MG in Sodium Chloride 0.9% 100 ML IVPB SCH (20:29)
[2017-05-08] MEDS: Atorvastatin Calcium 20 MG TAB PO SCH (20:29)
[2017-05-08] MEDS: cefTRIAXone\\ROCEPHIN 2 GM in Sodium Chloride 0.9% 100 ML IVPB SCH (23:57)
[2017-05-09] MEDS: Furosemide 40 MG/4 ML VIAL SLOW IVP SCH ×2 (06:13→15:10)
[2017-05-09 06:48] LABS: Anion Gap 17 mmol/L (10-20); BUN (Urea Nitrogen) 76 mg/dL (8.4-25.7); Calc. Creatinine Clearance 57 mL/min (70-130); Calcium 9.1 mg/dL (7.8-10.44); Carbon Dioxide 28 mmol/L (23-31); Chloride 101 mmol/L (98-107); Estimated GFR-MDRD 25
[2017-05-09] MEDS: Carvedilol 25 MG TAB PO SCH ×2 (08:05→16:42)
[2017-05-09] MEDS: Potassium Chloride 20 MEQ TAB PO SCH ×2 (08:05→16:42)
--- NOTE | 2017-05-09 08:22 | PDOC.PN ---
- Subjective Encounter Start Date: 05/09/17 Encounter Start Time: 08:20 Mr. Henson does not have any complaints this morning. He says he is breathing ok. - Objective Resuscitation Status: Resuscitation Status FULL:Full Resuscitation MAR Reviewed: Yes Vital Signs & Weight: Vital Signs (12 hours) Temp Pulse Resp BP BP Pulse Ox 05/09/17 08:00 97.8 F 61 17 115/56 L 100 05/09/17 05:25 98.1 F 60 20 119/58 L 100 Weight Admit Weight 334 lb Weight 333 lb 6.4 oz I&O: 05/08/17 05/09/17 05/10/17 06:59 06:59 06:59 Intake Total 2135 1625 Output Total 6 1620 Balance 89 5 Result Diagrams: 05/04/17 18:30 05/09/17 05:47 Additional Labs: Accuchecks 05/09/17 05/08/17 05/08/17 05:58 20:27 16:42 POC Glucose 127 H 178 H 161 H 05/08/17 05/08/17 05/08/17 11:48 05:05 03:56 POC Glucose 166 H 124 H 95 Phys Exam - Physical Examination HEENT: PERRLA Respiratory: no wheezing, no rales, no rhonchi, clear to auscultation bilateral Cardiovascular: RRR, no significant murmur Gastrointestinal: soft, non-tender, positive bowel sounds Musculoskeletal: edema present 3-4 + pitting edema Dx/Plan (1) Afib Code(s): I48.91 - UNSPECIFIED ATRIAL FIBRILLATION Status: Acute (2) BRADLEY (acute kidney injury) Code(s): N17.9 - ACUTE KIDNEY FAILURE, UNSPECIFIED Status: Acute (3) Acute on chronic systolic heart failure Code(s): I50.23 - ACUTE ON CHRONIC SYSTOLIC (CONGESTIVE) HEART FAILURE Status : Acute (4) Bacteremia Code(s): R78.81 - BACTEREMIA Status: Acute Comment: Enterococcus faecalis 2/ 2 In Blood Cx 03/09.ID following Corynebacterium species on 2/2 blood cx in 02/06. (5) CAD (coronary artery disease) Code(s): I25.10 - ATHSCL HEART DISEASE OF [place] CORONARY ARTERY W/O ANG PCTRS Status: Chronic (6) Morbid obesity with BMI of 40.0-44.9, adult Code(s): E66.01 - MORBID (SEVERE) OBESITY DUE TO EXCESS CALORIES; Z68.41 - BODY MASS INDEX (BMI) 40.0-44.9, ADULT Status: Chronic (7) ALEXANDRU (obstructive sleep apnea) Code(s): G47.33 - OBSTRUCTIVE SLEEP APNEA (ADULT) (PEDIATRIC) Status: Chronic Comment: CPAP HS (8) Diabetes mellitus type 2 in obese Code(s): E11.69 - TYPE 2 DIABETES MELLITUS WITH OTHER SPECIFIED COMPLICATION; E66.9 - OBESITY, UNSPECIFIED Status: Acute - Plan * Acute on chronic systolic and diastolic heart failure patient has had some improvement * Acute renal failure- from acute cardiorenal syndrome- he has had improvement in his renal function * He continues to have massive anasarca, with weeping lower extremity edema * Bacteremia- and possible bacterial endocarditis- Continue Ampicillin, and Rocephin IV * ALEXANDRU- stable on BiPAP * Severe deconditioning- continue PT * Await family decision regarding discharge placement.
[2017-05-09] MEDS: Aspirin 81 mg Enteric Coated Tablet PO SCH (08:28)
[2017-05-09] MEDS: Famotidine 20 MG TAB PO SCH (08:29)
[2017-05-09] MEDS: Finasteride 5 MG TAB PO SCH (08:29)
[2017-05-09] MEDS: Tamsulosin HCl 0.4 MG CAP PO SCH (08:29)
[2017-05-09] MEDS: Apixaban 5 MG TAB PO SCH ×2 (08:30→20:16)
[2017-05-09] MEDS: HYDROcodone/Acetaminophen 5/325 mg Tablet PO PRN (08:37)
[2017-05-09] MEDS: Nystatin Powder 15 GM BOT TOP SCH ×2 (08:38→20:16)
[2017-05-09] MEDS: Insulin Detemir 100 UNITS/ML 10 UNITS in Pre-Filled Syringe 1 EACH SC SCH (09:10)
--- NOTE | 2017-05-09 10:48 | PRG ---
Patient Name: MADY MONROE Date of service: 05/09/2017 Subjective: Patient was seen and examined at bedside and overnight events noted. Patient denies any shortness of breath or chest pain or palpitation. No history of nausea or vomiting or diarrhea or fever or chills or cramps. Objective: General: This is a well-built male in no apparent distress, feeling a little bit better. Vital signs: Temperature 97.8, pulse 61, respirations 18, blood pressure 115/52. HEENT: Atraumatic, normocephalic. Oral mucosa is moist. Neck: Supple. Cardiovascular: S1 S2 heard. Rate and rhythm regular. Respiratory: Clear to auscultation. Gastrointestinal: Abdomen is soft. Musculoskeletal: No tenderness. No edema. Dermatologic: No skin rash. Neurologic: Alert and awake and oriented X3. No focal neurologic deficits. Moving all the extremi ties. Psychiatric: Mood and affect normal. LABORATORY DATA: Potassium is 3.7, BUN 76, creatinine 2.7. ASSESSMENT AND PLAN: 1. Acute kidney injury on chronic kidney disease stage 4 secondary to cardiorenal syndrome. Renal function is slightly better, but overall prognosis is poor. Followup with Cardiology. 2. Hypokalemia, replaced. Monitor. 3. Hypertension, stable. 4. Anemia. 5. Severe pulmonary hypertension. 6. Cardiorenal syndrome. Overall prognosis is poor. Patient and family is pursuing further treatment in [place] and [facility] [facility]. I will follow along. No acute indication for dialysis. Renal function is slightly better. Avoid n ephrotoxins. We will follow.
[2017-05-09 13:56] VITALS: BMI 47.8
[2017-05-09] MEDS: Micafungin 100 MG in Sodium Chloride 0.9% 100 ML IVPB SCH (20:15)
[2017-05-09] MEDS: Atorvastatin Calcium 20 MG TAB PO SCH (20:16)
[2017-05-10 00:06] VITALS: BP 113/55; TEMP 97.6
--- NOTE | 2017-05-10 10:00 | PRG ---
DATE OF SERVICE: 05/09/2017 SERVICE: Pulmonary Medicine. INTERVAL HISTORY: The patient is doing okay from a respiratory standpoint. He maintains very good saturations with minimal FIO2. He denies any current shortness of breath or chest discomfort. He c ontinues to have abdominal swelling and lower extremity swelling, but these things are improving slo wly. Otherwise, he is in his usual state of health. After multiple conversations between the patie nt, palliative care, and Cardiology, they are planning on sending him down to [place], so that they can expedite an inpatient workup for pulmonary hypertension and consider a balloon valvuloplasty. A s soon as a room becomes available, he will be transferred in that direction. PHYSICAL EXAMINATION: VITAL SIGNS: Afebrile, pulse 60, blood pressure 103/53, respirations 20, saturation 100% on 3 liter s nasal cannula. GENERAL: Patient is awake, alert, in no apparent distress. LUNGS: Reduced air entry. There is no prolonged expiratory phase. Crackles are present but minima l. No rhonchi or wheezing is appreciated. HEART: Normal rate, regular. ABDOMEN: Soft, nontender, nondistended. Bowel sounds are positive. MUSCULOSKELETAL: No cyanosis or clubbing. There is diffuse 2-3+ pitting throughout. GENITOURINARY: No Gong catheter in place. NEUROLOGIC: Grossly nonfocal. LABORATORY DATA: WBC 9.2, hemoglobin 12.6, platelets 124,000. Creatinine 2.52 and gently down tren ding. Basic metabolic profile is, otherwise, unremarkable. BUN has improved to 76. Calcium 6.1. Urine culture is growing yeast species. Foot culture is growing Olga albicans. Blood cultures x 2 are unremarkable. ASSESSMENT: 1. Acute hypoxic respiratory failure. 2. Acute on chronic systolic heart failure. 3. Pulmonary hypertension, likely multifactorial. 4. Obstructive sleep apnea, well controlled with CPAP therapy. 5. Metabolic encephalopathy, resolving. 6. Aortic stenosis. 7. Hypothyroidism, new diagnosis. PLAN: Despite the fact that we are giving the patient Lasix 80 mg 3 times daily, it is everything w e can do to basically keep him even. His lower extremity swelling is improving ever so slightly, be cause of insensible losses. We have been trying to get him to [place] for quite some time, but he k eeps finding himself back into the nursing facility of the hospital and the evaluation of pulmonary hypertension keeps being postponed. The physicians in [place] have accepted him in transfer. As so on as a room becomes available, we will send him. He will also be considered for balloon valvulopla sty. Ultimately, I hope we find something that we can fix. If we cannot and he is not a candidate for dialysis, transitioning over to comfort care would be appropriate.
--- NOTE | 2017-05-10 22:33 | DIS ---
DATE OF ADMISSION: 05/03/2017 DATE OF DISCHARGE: 05/09/2017 PRIMARY CARE PHYSICIAN: Dr. Jovan Garcia. DISCHARGE DISPOSITION: [facility] in [place] in the [facility]. DISCHARGE DIAGNOSES: 1. Acute on chronic systolic as well as diastolic heart failure. 2. Cellulitis of the lower extremities. 3. Chronic venous stasis ulcers. 4. Coronary artery disease. 5. Diabetes mellitus, type 2. 6. Hypertension. 7. Morbid obesity. The patient is 5 feet 10 inches and weighs 333 pounds. Body mass index was 47. 8. History of aortic valve replacement with a bioprosthetic valve. 9. Ischemic cardiomyopathy with an ejection fraction of 25-30%. 10. Chronic kidney disease, stage 4. 11. History of Enterococcus faecalis bacteremia, currently on IV ampicillin and Rocephin. DISCHARGE MEDICATIONS: Include tramadol 50 mg q.6 hours as needed, Ambien 10 mg at bedtime, torsemi de 20 mg daily, Flomax 0.4 mg daily, potassium chloride 40 mEq twice a day, nystatin powder as neede d, Imdur 30 mg twice daily, albuterol nebs q.4 hours, Lantus insulin 10 units daily, [place] 7.5/325 o ne tablet q.6 hours as needed, finasteride 5 mg daily, Coreg 12.5 mg twice daily, Lipitor 20 mg nikki y, aspirin 81 mg daily, Eliquis 2.5 mg twice a day, amiodarone 200 mg daily, ampicillin 2 grams IV q .8 hours until mid May as well as Rocephin 2 grams IV q.24 hours until mid May. ALLERGIES: NSAIDs, ALLOPURINOL, WARFARIN and ADHESIVE. HOSPITAL COURSE: Mr. Henson is a pleasant 71-year-old gentleman, who was admitted from [facility] due to lethargy as well as 50-pound weight gain over the past 2 weeks. He was found to be i n both acute on chronic combined heart failure as well as acute on chronic kidney failure. His admi ssion creatinine was 3.64, with a GFR of 17. He was also hypokalemic and was excessively volume ove rloaded. He was started on IV diuretics and began to diurese fairly well. His renal function, whic h was the acute on chronic kidney disease, which was due to cardiorenal syndrome, improved with diur esis. At the time of discharge, his creatinine had improved to 2.52. However, the patient still maldonado d significant refractory edema. Some of his symptoms were compounded by severe obstructive sleep ap ani as the patient would fall asleep during conversations, despite being on nightly BiPAP. He also has a history of fairly severe pulmonary hypertension, which was well known and at the time of disch arge, it was felt that he may have some chance of improved medical condition with the treatment of t he pulmonary hypertension, although his overall prognosis is very poor. The patient was transferred to [facility] in the [facility] for more aggressive treatment of the pulmonary hypertension. H e was to continue the treatment currently for the Enterococcus faecalis bacteremia with a questionab le history of endocarditis as well as diuretic therapy for the acute on chronic combined systolic he art failure and continued monitoring for his renal function.
--- OUTSIDE RECORDS SUMMARY | 2017-05-13 18:08 | XMS | Clinical Summary ---
:1945 Author Organization [facility] Address [address] [place] [address] Phone Care Team Providers Name Role Phone , Primary Care Provider Unavailable Allergies Active Allergy Reactions Severity Noted Date Comments Adhesive Tape 05/09/2017 Allopurinol Analogues 05/09/2017 Metformin 05/09/2017 Nsaids (Non-Steroidal Anti-Inflammatory Drug) 05/09/2017 Warfarin 05/09/2017 Current Medications Prescription Sig. Disp. Refills Start Date End Date Status amiodarone Take 200 mg by mouth Suspended (PACERONE) 200 MG daily. tablet carvedilol (COREG) Take 12.5 mg by mouth Suspended 12.5 MG tablet 2 (two) times daily with breakfast and dinner. aspirin 81 MG EC Take 81 mg by mouth Suspended tablet daily. apixaban (ELIQUIS) Take 2.5 mg by mouth Suspended 2.5 mg Tab tablet 2 (two) times daily. tamsulosin (FLOMAX) Take 0.4 mg by mouth Suspended 0.4 mg Cp24 24 hr daily. capsule isosorbide Take 30 mg by mouth 2 Suspended mononitrate (IMDUR) (two) times daily. 30 MG 24 hr tablet potassium chloride Take 40 mEq by mouth Suspended SA (K-DUR,KLOR-CON) 2 (two) times daily. 10 MEQ tablet furosemide (LASIX) Take 80 mg by mouth Suspended 80 MG tablet every 8 (eight) hours. atorvastatin Take 20 mg by mouth Suspended (LIPITOR) 20 MG daily. tablet nystatin Apply topically 2 Suspended (MYCOSTATIN) 100,000 (two) times daily. unit/gram powder famotidine (PEPCID) Take 20 mg by mouth Suspended 20 MG tablet daily. finasteride Take 5 mg by mouth Suspended (PROSCAR) 5 mg daily. tablet sodium chloride 0.9% Inject 2 g Suspended (NS) SolP 100 mL intravenously every 8 with ampicillin 2 (eight) hours. gram SolR 2 g insulin detemir Inject 10 Units Suspended (LEVEMIR) 100 subcutaneously daily. unit/mL injection micafungin Inject 100 mg Suspended (MYCAMINE) 100 mg intravenously daily. SolR cefTRIAXone Inject 2 g Suspended (ROCEPHIN) IVPB intravenously. 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 Coronary artery disease involving lone pine coronary artery of lone pine heart 05/10 without angina pectoris Infection of pacemaker lead wire, subsequent encounter 05/10/2017 Enterococcus faecalis infection 05/10/2017 Enterococcal bacteremia 05/10/2017 Stage 5 chronic kidney disease not on chronic dialysis (HCC) 05/10/2017 Olga rash of groin 05/10/2017 Urinary retention due to benign prostatic hyperplasia 05/10/2017 Benign prostatic hyperplasia with urinary retention 05/10/2017 Acute on chronic systolic CHF (congestive heart failure) ([facility]) 05/10/2017 ALEXANDRU on CPAP 05/10/2017 Chronic atrial fibrillation ([facility]) 05/10/2017 Encounters Date Type Specialty Care Team Description 05/10/2017 Orders Only General Internal Medicine 05/09/2017 Hospital Encounter Cardiac Intensive Ousmane Reno Prosthetic valve Care MD Anastasiya dysfunction, initial Lorrie Woo, encounter;Ischemic cardiomyopathy;H/O Tio Crum aortic valve MD Iván replacement;History of bacteremia;CKD stage 4 due to type 2 diabetes mellitus ([facility]);Chronic atrial fibrillation([facility]);Acu te on chronic systolic CHF (congestive heart failure) ([facility]);Benign prostatic hyperplasia with urinary retention;Olga rash of groin;Coronary artery disease involving lone pine coronary arteryof lone pine heart without angina pectoris from Last 3 Months Family History Medical History Relation Name Comments Diabetes Father Relation Name Status Comments Father Social History Tobacco Use Types Packs/Day Years Used Date Former Smoker Smokeless Tobacco: Never Used Alcohol Use Drinks/Week oz/Week Comments Yes 1 Glasses of wine 0.6 Sex Assigned at Date Recorded Not on file Last Filed Vital Signs Vital Sign Reading Time Taken Blood Pressure 106/54 05/12/2017 8:02 PM CDT Pulse 79 05/13/2017 6:00 PM CDT Temperature 37.3 C (99.1 F) 05/13/2017 4:00 PM CDT Respiratory Rate 12 05/13/2017 6:00 PM CDT Oxygen Saturation 96% 05/13/2017 6:00 PM CDT Inhaled Oxygen Concentration - - Weight 144.1 kg (317 lb 10.9 oz) 05/13/2017 6:00 AM CDT Height - - Body Mass Index - - Plan of Treatment Not on file Results aPTT (05/13/2017 5:07 PM)Only the most recent of10 resultswithin the time period is included. Component Value Ref Range PTT 69.2(H) 22.5 - 36.0 seconds Specimen Performing Laboratory Blood - Line, Arterial [address] [address] POC-Glucose meter (05/13/2017 5:03 PM)Only the most recent of13 resultswithin the time period is included. Component Value Ref Range POC-Glucose Meter 161(H)Comment:TESTED AT [address] 70 - 110 mg/[place] [address] Specimen Performing Laboratory Blood [address] [address] Magnesium (05/13/2017 2:15 PM)Only the most recent of11 resultswithin the time period is included. Component Value Ref Range Magnesium 2.0 1.6 - 2.6 mg/dL Specimen Performing Laboratory Blood - Line, Arterial [address] [address] Basic Metabolic Panel (05/13/2017 2:15 PM)Only the most recent of9 resultswithin the time period is included. Component Value Ref Range Sodium 143 136 - 145 meq/L Potassium 3.4(L) 3.5 - 5.1 meq/L Chloride 102 98 - 107 meq/L CO2 26 22 - 29 meq/L BUN 70(H) 7 - 21 mg/dL Creatinine 2.31(H) 0.57 - 1.25 mg/dL Glucose 144(H) 70 - 105 mg/dL Calcium 8.8 8.4 - 10.2 mg/dL EGFR 28Comment:ESTIMATED GFR IS NOT ACCURATE CREATININE mL/min/1.73 sq m CLEARANCE IN PREDICTING GLOMERULAR FILTRATION RATE. ESTIMATED GFR IS NOT APPLICABLE FOR DIALYSIS PATIENTS. Specimen Performing Laboratory Blood - Line, [address] [address] XR chest 1 view portable / bedside (05/13/2017 8:10 AM)Only the most recent of5 resultswithin the time period is included. Specimen Performing Laboratory GE RIS Narrative FINAL REPORT CLINICAL HISTORY: chf TECHNIQUE: 1 view of the chest. COMPARISON: 05/12/2017 IMPRESSION: Right asymmetric airspace opacities have minimally decreased. A small right pleural effusion is again seen. The cardiomediastinal silhouette is magnified by technique with sternotomy wires and a pacemaker. A left PICC line is again seen. Signed: Walker Franklin MD Report Verified Date/Time:05/13/2017 08:32:47 Reading Location: [address] Neuro Reading Room Procedure Note Interface, External Ris In - 05/13/2017 8:48 AM CDT FINAL REPORT CLINICAL HISTORY: chf TECHNIQUE: 1 view of the chest. COMPARISON: 05/12/2017 IMPRESSION: Right asymmetric airspace opacities have minimally decreased. A small right pleural effusion is again seen. The cardiomediastinal silhouette is magnified by technique with sternotomy wires and a pacemaker. A left PICC line is again seen. Signed: Walker Franklin MD Report Verified Date/Time: 05/13/2017 08:32:47 Reading Location: [address] Neuro Reading Room with platelet count + automated diff (05/13/2017 4:06 AM)Only the most recent of5 resultswithin the time period is included. Component Value Ref Range WBC 7.7 3.5 - 10.5 K/L RBC 3.82(L) 4.63 - 6.08 M/L Hemoglobin 10.9(L) 13.7 - 17.5 GM/DL Hematocrit 36.4(L) 40.1 - 51.0 % MCV 95.3(H) 79.0 - 92.2 fL MCH 28.5 25.7 - 32.2 pg MCHC 29.9(L) 32.3 - 36.5 GM/DL RDW 20.7(H) 11.6 - 14.4 % Platelets 108(L) 150 - 450 K/CU MM MPV 10.9 9.4 - 12.4 fL nRBC 0 0 - 0 /100 WBC % Neutros 78 % % Lymphs 11 % % Monos 10 % % Eos 0 % % Baso 1 % # Neutros 5.97(H) 1.78 - 5.38 K/L # Lymphs 0.81(L) 1.32 - 3.57 K/L # Monos 0.78 0.30 - 0.82 K/L # Eos 0.03(L) 0.04 - 0.54 K/L # Baso 0.05 0.01 - 0.08 K/L Immature Granulocytes-Relative 0 0 - 1 % Specimen Performing Laboratory Blood [address] [address] CBC with platelet count + automated diff (05/13/2017 4:06 AM)Only the most recent of5 resultswithin the time period is included. Specimen Performing Laboratory Blood Narrative The following orders were created for panel order CBC with platelet count + automated diff. Procedure Abnormality Status --------- ------ CBC with platelet count ...[[id number]]AbnormalFinal result Please view results for these tests on the individual orders. ECHOCARDIOGRAM REPORT - SCAN (05/12/2017 11:20 AM)Only the most recent of2 resultswithin the time period is included.Blood gas, arterial (05/12/2017 4:42 AM)Only the most recent of3 resultswithin the time period is included. Component Value Ref Range pH, Arterial 7.45 7.35 - 7.45 pCO2, Arterial 45 35 - 45 mmHg pO2, Arterial 196(H) 80 - 90 mmHg O2 Sat, Arterial 99.4(H) 96.0 - 97.0 % HCO3, Arterial 30(H) 21 - 29 mmol/L Base Excess, Arterial 5.8(H) -2.0 - 3.0 mmol/L Patient Temperature 37.2 C FIO2 100.0 % Specimen Performing Laboratory Blood, Arterial [address] [address] renal complete (05/11/2017 8:10 PM) Specimen Performing Laboratory GE [facility] Narrative FINAL REPORT U/S, RENAL, COMPLETE CLINICAL INDICATION:BRADLEY, CKD COMPARISON: None TECHNIQUE:The kidneys and urinary bladder were evaluated using real time rodgers scale and color Doppler sonography. FINDINGS: Right kidney: Size: 10.1 x 5.4 x 4.5 cm. Parenchyma: Increased echogenicity. Cortical thinning. No cysts. No stones. Hydronephrosis: None. Left kidney: Size: 12.5 x 6.5 x 5.9 cm. Parenchyma: Increased echogenicity, questionable cortical thinning. No cysts. No stones. Hydronephrosis: None. Renal Vasculature: Doppler interrogation reveals preserved vascular flow in the main renal arteries and veins bilaterally. Urinary bladder: Decompressed by Gong catheter. Additional findings: None. IMPRESSION: Thin renal cortices with increased echogenicity suggesting underlying medical renal disease. Signed: JR Govea Robert MD Report Verified Date/Time:05/11/2017 21:23:24 Reading Location: [facility] C013 CT Body Reading Room Procedure Note Interface, External Ris In - 05/11/2017 9:25 PM CDT FINAL REPORT U/S, RENAL, COMPLETE CLINICAL INDICATION: BRADLEY, CKD COMPARISON: None TECHNIQUE: The kidneys and urinary bladder were evaluated using real time rodgers scale and color Doppler sonography. FINDINGS: Right kidney: Size: 10.1 x 5.4 x 4.5 cm. Parenchyma: Increased echogenicity. Cortical thinning. No cysts. No stones. Hydronephrosis: None. Left kidney: Size: 12.5 x 6.5 x 5.9 cm. Parenchyma: Increased echogenicity, questionable cortical thinning. No cysts. No stones. Hydronephrosis: None. Renal Vasculature: Doppler interrogation reveals preserved vascular flow in the main renal arteries and veins bilaterally. Urinary bladder: Decompressed by Gong catheter. Additional findings: None. IMPRESSION: Thin renal cortices with increased echogenicity suggesting underlying medical renal disease. Signed: JR Govea Robert MD Report Verified Date/Time: 05/11/2017 21:23:24 Reading Location: [facility] B1 C013Y CT Body Reading Room Hemoglobin and hematocrit (05/11/2017 6:23 PM) Component Value Ref Range Hemoglobin 10.3(L) 13.7 - 17.5 GM/DL Hematocrit 34.0(L) 40.1 - 51.0 % Specimen Performing Laboratory Blood [facility] [address] [address] XR abdomen / KUB 1 view (05/11/2017 4:26 PM) Specimen Performing Laboratory GE RIS Narrative FINAL REPORT TECHNIQUE: Single, supine view of the abdomen dated 05/11/2017. HISTORY: Feeding tube. COMPARISON: None IMPRESSION: No air-filled, dilated loops of small bowel to suggest obstruction. No free intraperitoneal air. No abnormal soft tissue mass or calcification. Degenerative changes are seen in the spine. Left lung base atelectasis is visualized. Trace right pleural effusion. Signed: Wyatt Hollis MD Report Verified Date/Time:05/11/2017 16:55:16 Reading Location: [facility] Radiology Reading Room Procedure Note Interface, External Ris In - 05/11/2017 4:57 PM CDT FINAL REPORT TECHNIQUE: Single, supine view of the abdomen dated 05/11/2017. HISTORY: Feeding tube. COMPARISON: None IMPRESSION: No air-filled, dilated loops of small bowel to suggest obstruction. No free intraperitoneal air. No abnormal soft tissue mass or calcification. Degenerative changes are seen in the spine. Left lung base atelectasis is visualized. Trace right pleural effusion. Signed: Wyatt Hollis MD Report Verified Date/Time: 05/11/2017 16:55:16 Reading Location: 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 Clinical History ARF,CAD,CMP,CHF,A-FIB,CKD,DM,HTN,MORBID OBESITY,ALEXANDRU,SEPSIS,AVR Height: 70 inches Weight: 145.15 kg (320 lbs) BSA: 2.55 m^2 BMI: 45.91 kg/m^2 HR: 88 bpm BP: 98/70 mmHg Summary 1. The prosthetic AoV appears well-seated but AoV prosthesis function is abnormal. 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 No evidence of paravalvar leak. Moderate aortic stenosis with DI - 0.29. No evidence of aortic root abscess or pseudoaneurysm. 2. There is no other clear evidence of endocarditis noted in any of the cardiac chambers or valves. 3. Global LV systolic function moderately reduced. Estimated LVEF by qualitative assessment is moderately reduced (35%). The left ventricle is chamber size is enlarged. LA size is severely enlarged. No clots in LA appendage. 4. The right ventricular cavity size is mildly enlarged. Low normal RV function. RA size is moderately dilated. RV pacing wire is visualized, though no evidence of endocarditis noted. 5. Mild mitral regurgitation. The patient was counseled and informed consent was obtained. Patient was intubated (ET) prior to the procedure followed by intravenous anesthesia was administered. The esophagus was intubated without difficulty. The probe was passed and all standard echocardiographic views were obtained. The patient tolerated the procedure well. No complications were noted during or following the procedure. Previous Study The aortic valve regurgitation and degeneration is better visualized on this MATTHEW. Signature Findings Left Ventricle Global LV systolic function moderately reduced. Estimated LVEF by qualitative assessment is moderately reduced (35%) . The left ventricle is chamber size is enlarged. Left AtriumLA size is severely enlarged. No clots in LA appendage. Right VentricleThe right ventricular cavity size is mildly enlarged . Low normal RV function. A catheter is noted in the RV. RV pacing wire is visualized, though no evidence of endocarditis noted. Right Atrium RA size is moderately dilated. A catheter is noted in the RA. Atrial SeptumNormal interatrial septum by available views. Aortic Valve A stented biologic AoV prosthesis is well visualized. The prosthetic AoV appears well-seated but AoV prosthesis function is abnormal. 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 No evidence of paravalvar leak. No evidence of aortic root abscess or pseudoaneurysm. Mitral Valve Normal MV structure. Mild MV leaflet thickening. Mild mitral regurgitation. Tricuspid ValveNormal TV structure and function. Pulmonic Valve Normal PV structure and function. AortaVisualized aortic arch is normal . Grade 2 plaque (extensive intimal thickening) in the aortic arch . PericardiumNo pericardial effusion is visualized. IVC/SVC/PA/PV/PleuralPleural fluid and ascites noted. 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 Clinical History ARF,CAD,CMP,CHF,A-FIB,CKD,DM,HTN,MORBID OBESITY,ALEXANDRU,SEPSIS,AVR Height: 70 inches Weight: 145.15 kg (320 lbs) BSA: 2.55 m^2 BMI: 45.91 kg/m^2 HR: 88 bpm BP: 98/70 mmHg Summary 1. The prosthetic AoV appears well-seated but AoV prosthesis functionis abnormal. 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 No evidence of paravalvar leak. Moderate aortic stenosis with DI - 0.29. No evidenceof aortic root abscess or pseudoaneurysm. 2. There is no other clear evidence of endocarditis noted in any of the cardiac chambers or valves. 3. Global LV systolic function moderately reduced. Estimated LVEF by qualitative assessment is moderately reduced (35%). The left ventricleis chamber size is enlarged. LA size is severely enlarged. No clots in LA appendage. 4. The right ventricular cavity size is mildly enlarged. Low normal RV function. RA size is moderately dilated. RV pacing wire is visualized, though no evidence of endocarditis noted. 5. Mild mitral regurgitation. The patient was counseled and informed consent was obtained. Patientwas intubated (ET) prior to the procedure followed by intravenousanesthesia was administered. The esophagus was intubated without difficulty. The probe was passed and all standard echocardiographic views wereobtained. The patient tolerated the procedure well. No complications were noted during or following the procedure. Previous Study The aortic valve regurgitation and degeneration is better visualized on this MATTHEW. Signature Findings Left Ventricle Global LV systolic function moderately reduced. Estimated LVEF by qualitative assessment is moderately reduced (35%) . The left ventricle is chamber size is enlarged. Left Atrium LA size is severely enlarged. No clots in LA appendage. Right Ventricle The right ventricular cavity size is mildly enlarged . Low normal RV function. A catheter is noted in the RV. RV pacing wire is visualized, though no evidenceof endocarditis noted. Right Atrium RA size is moderately dilated. A catheter is noted in the RA. Atrial Septum Normal interatrial septum by available views. Aortic Valve A stented biologic AoV prosthesis is well visualized. The prosthetic AoV appearswell-seated but AoV prosthesis function is abnormal. 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 No evidence of paravalvar leak. No evidence of aortic root abscess orpseudoaneurysm. Mitral Valve Normal MV structure. Mild MV leaflet thickening. Mild mitral regurgitation. Tricuspid Valve Normal TV structure and function. Pulmonic Valve Normal PV structure and function. Aorta Visualized aortic arch is normal . Grade 2 plaque (extensive intimal thickening) in the aortic arch . Pericardium No pericardial effusion is visualized. IVC/SVC/PA/PV/Pleural Pleural fluid and ascites noted. Doppler/Quantitative Measurements Aortic Valve Peak Velocity: 2.94 m/s Mean Velocity: 2.14 m/s Peak Gradient: 34.69 mmHg Mean Gradient: 20.56 mmHg AV VTI: 74.28 cm AV DVI: 0.29 LVOT Peak Velocity: 0.96 m/s Peak Gradient: 3.71 mmHg Mean Velocity: 0.6 m/s Mean Gradient: 1.72 mmHg LVOT VTI: 21.69 cm T4, free (05/10/2017 3:49 PM) Component Value Ref Range Free T4 0.76 0.70 - 1.48 ng/dL Specimen Performing Laboratory Blood - Central Venous Line [address] [address] Blood gas, venous (05/10/2017 3:49 PM) Component Value Ref Range pH, Isma 7.43(H) 7.32 - 7.42 pCO2, Isma 46 41 - 51 mmHg pO2, Isma 33 25 - 40 mmHg O2 Sat, Isma 66.1 40.0 - 70.0 % HCO3, Isma 30(H) 21 - 29 mmol/L Base Excess, Isma 4.7(H) -2.0 - 3.0 mmol/L Patient Temperature 36.5 C FIO2 36.0 % Specimen Performing Laboratory Blood - Central Venous Line [address] [address] Urea Nitrogen, random urine (05/10/2017 3:15 PM) Component Value Ref Range Urea Nitrogen, Ur 539 mg/dL Specimen Performing Laboratory Urine - Urine, [address] [address] Narrative Reference Range: No Normals Sodium, random urine (05/10/2017 3:15 PM) Component Value Ref Range Sodium Urine <20 meq/L Specimen Performing Laboratory Urine - Urine, [address] [address] Narrative Reference Range: No Normals Potassium, random urine (05/10/2017 3:15 PM) Component Value Ref Range Potassium Urine 48.6 meq/L Specimen Performing Laboratory Urine - Urine, [address] [address] Narrative Reference Range: No Normals Creatinine, random urine (05/10/2017 3:15 PM) Component Value Ref Range Creatinine, Ur 52.3 mg/dL Specimen Performing Laboratory Urine - Urine, [address] [address] Narrative Reference Range: No Normals Chloride, random urine (05/10/2017 3:15 PM) Component Value Ref Range ChlorideUr 24 meq/L Specimen Performing Laboratory Urine - Urine, [address] [address] Narrative Reference Range: No Normals Lactic acid, venous, whole blood (05/10/2017 2:07 PM) Component Value Ref Range Lactate, Venous 1.5 0.5 - 2.2 mmol/L Specimen Performing Laboratory Blood - Central Venous Line [address] [address] Narrative Effective 11/25/2015: Units/Reference Range Change New: 0.5-2.2 mmol/LPrevious: 5-20 mg/dL Prothromin time/INR (05/10/2017 2:07 PM) Component Value Ref Range Protime 23.1(H) 11.7 - 14.7 seconds INR 2.0 <=5.9 Specimen Performing Laboratory Blood - Central Venous Line [address] [address] Narrative RECOMMENDED COUMADIN/WARFARIN INR THERAPY RANGES STANDARD DOSE: 2.0 - 3.0 Includes: PROPHYLAXIS for venous thrombosis, systemic embolization; TREATMENT for venous thrombosis and/or pulmonary embolus. HIGH RISK: Target INR is 2.5-3.5 for patients with mechanical heart valves. Fibrinogen (05/10/2017 2:07 PM) Component Value Ref Range Fibrinogen 252 225 - 434 mg/dl Specimen Performing Laboratory Blood - Central Venous Line [address] [address] Phosphorus (05/10/2017 2:07 PM)Only the most recent of2 resultswithin the time period is included. Component Value Ref Range Phosphorus 3.2 2.3 - 4.7 mg/dL Specimen Performing Laboratory Blood - Central Venous Line [address] [address] Creatine Kinase (CK) (05/10/2017 2:07 PM) Component Value Ref Range Total CK 36 29 - 200 U/L Specimen Performing Laboratory Blood - Central Venous Line [address] [address] Comprehensive metabolic panel (05/10/2017 2:07 PM)Only the most recent of2 resultswithin the time period is included. Component Value Ref Range Protein, Total 5.5(L) 6.0 - 8.3 gm/dL Albumin 2.9(L) 3.5 - 5.0 g/dL Alkaline Phosphatase 82 40 - 150 U/L Total Bilirubin 1.0 0.2 - 1.2 mg/dL Sodium 143 136 - 145 meq/L Potassium 4.0 3.5 - 5.1 meq/L Chloride 101 98 - 107 meq/L CO2 28 22 - 29 meq/L BUN 75(H) 7 - 21 mg/dL Creatinine 2.35(H) 0.57 - 1.25 mg/dL Glucose 137(H) 70 - 105 mg/dL Calcium 8.8 8.4 - 10.2 mg/dL AST 19 5 - 34 U/L ALT 18 6 - 55 U/L EGFR 27Comment:ESTIMATED GFR IS NOT ACCURATE mL/min/1.73 sq m CREATININE CLEARANCE IN PREDICTING GLOMERULAR FILTRATION RATE. ESTIMATED GFR IS NOT APPLICABLE FOR DIALYSIS PATIENTS. 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 Clinical History HGB 10.8 HCT 36.6 % Bioprosthetic AVR, CAD, ICM, CKD, ALEXANDRU, Obesity, HTN, DM, AFIB, CHF Height: 70 inches Weight: 145.15 kg (320 lbs) BSA: 2.55 m^2 BMI: 45.91 kg/m^2 HR: 62 bpm BP: 92/49 mmHg Summary 1. The left ventricle is chamber size (by vol index) is normal. No evidence of LV hypertrophy. All of the LV segments are hypokinetic. LV diastolic function is indeterminate. Estimated LVEF by qualitative assessment is moderately reduced (30-34%). Global LV systolic function moderately reduced. LA size is severely enlarged (>48 ml/m2) . 2. RV chamber size is moderately enlarged. Global RV systolic function is depressed. RA cavity size is moderately enlarged. Estimated peak systolic PA pressure is 55-60 mmHg . 3. A stented biologic AoV prosthesis is visualized. The prosthetic AoV appears well-seated. Moderate to severe para valvular aortic insufficiency. There is moderately raised raised aortic gradients, likely due to AR and associated valvular stenosis. DI- 0.3. Peak/ mean gradient of 39/22 mmHg. There is no clear evidence of aortic abscess. Suggest MATTHEW to better assess prosthetic valve. 4. Moderate tricuspid regurgitation. Previous Study No prior exam available for comparison. Signature Findings Technical Quality: Technically difficult exam. Rhythm/BPPaced rhythm during the exam. Left Ventricle The LV endocardium is adequately visualized. The left ventricle is chamber size (by vol index) is normal (male - LVED vol - 34-74ml/m2). No evidence of LV hypertrophy. All of the LV segments are hypokinetic. LV diastolic function is indeterminate. Estimated LVEF by qualitative assessment is moderately reduced (30-34%). Global LV systolic function moderately reduced . Left AtriumLA size is severely enlarged (>48 ml/m2) . Right VentricleRV chamber size is moderately enlarged . RV is well visualized. Global RV systolic function is depressed. RV pacing wire is visualized . Right Atrium The RA is well visualized. RA cavity size is moderately enlarged. RA pacing wire is visualized . Aortic Valve A stented biologic AoV prosthesis is visualized. The prosthetic AoV appears well-seated. Moderate to severe para valvular aortic insufficiency. There is moderately raised raised aortic gradients, lekely due to AR and associated valvular stenosis. DI- 0.3. Peak/ mean gradient of 39/ 22 mmHg. Mitral Valve Normal MV structure and function. Trace mitral regurgitation. Tricuspid ValveModerate tricuspid regurgitation. Estimated peak systolic PA pressure is 55-60 mmHg . Pulmonic Valve Normal PV structure and function by limited views and Doppler. AortaAortic root size (SInus of Valsalva diameter) is normal . PericardiumNo pericardial effusion is visualized. IVC/SVC/PA/PV/PleuralThe inferior vena cava is adequately visualized. The inferior vena cava size is increased . The estimated RA pressure by IVC dynamics 11-15mmHg . Chambers/Structures Left Atrium LA Volume: 138.93 mlLA Area: 35.69 cm^2 LA Vol. Index: 54 ml/m^2 Left Ventricle LVIDd: 5.76 cm LV Septum Diastolic: 1.22 cm LV PW Diastolic: 1.19 cm LVEDV BP Mcgregor's:183.79 ml LVESV BP Mcgregor's:118.63 ml LVEF BP Mcgregor's: 35 % LVOT Diameter: 2.2 cm Aorta Ao Root S of Gail.: 3.57 cm Shunts QS:90.09 ml Doppler/Quantitative Measurements Mitral Valve MV Peak E-Wave: 1.07 m/sPeak Gradient: 4.59 mmHg Aortic Valve Peak Velocity: 3.12 m/s Mean Velocity: 2.21 m/s Peak Gradient: 39.02 mmHg Mean Gradient: 22 mmHg AV Area (continuity): 1.15 cm^2 AV VTI: 78.14 cm AV DVI: 0.3 LVOT Peak Velocity: 0.95 m/s Peak Gradient: 3.61 mmHg Mean Velocity: 0.66 m/s Mean Gradient: 2.01 mmHg LVOT Diameter: 2.2 cm LVOT VTI: 23.7 cm LVOT Area: 3.8 cm^2 LVOT SV:90.05 ml LVOT CO: 5.58 l/min LVOT CI: 2.19 l/min/m^2 Tricuspid Valve TR Velocity: 3.3 m/s TR Gradient: 43.64 mmHg Procedure Note Interface, External Ris In - 05/10/2017 6:02 PM CDT Transthoracic Echocardiography Report (TTE) Demographics Patient Name MADY MONROE Date of Study 05/10/2017 Gender Male Visit Number [id number] Race Unknown Room Number 6101 Number Date of 1945 Referring Physician Ousmane Reno Age 71 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 Clinical History HGB 10.8 HCT 36.6 % Bioprosthetic AVR, CAD, ICM, CKD, ALEXANDRU, Obesity, HTN, DM, AFIB, CHF Height: 70 inches Weight: 145.15 kg (320 lbs) BSA: 2.55 m^2 BMI: 45.91 kg/m^2 HR: 62 bpm BP: 92/49 mmHg Summary 1. The left ventricle is chamber size (by vol index) is normal. No evidence of LV hypertrophy. All of the LV segments are hypokinetic. LV diastolic function is indeterminate. Estimated LVEF by qualitative assessment is moderately reduced (30-34%). Global LV systolic function moderately reduced. LA size is severely enlarged (>48 ml/m2) . 2. RV chamber size is moderately enlarged. Global RV systolic functionis depressed. RA cavity size is moderately enlarged. Estimated peaksystolic PA pressure is 55-60 mmHg . 3. A stented biologic AoV prosthesis is visualized. The prosthetic AoV appears well-seated. Moderate to severe para valvular aortic insufficiency. There is moderately raised raised aortic gradients,likely due to AR and associated valvular stenosis. DI- 0.3. Peak/ meangradient of 39/22 mmHg. There is no clear evidence of aortic abscess. SuggestTEE to better assess prosthetic valve. 4. Moderate tricuspid regurgitation. Previous Study No prior exam available for comparison. Signature Findings Technical Quality: Technically difficult exam. Rhythm/BP Paced rhythm during the exam. Left Ventricle The LV endocardium is adequately visualized. The left ventricle is chamber size (by vol index) is normal (male - LVED vol - 34-74ml/m2). Noevidence of LV hypertrophy. All of the LV segments are hypokinetic. LV diastolic function is indeterminate. Estimated LVEF by qualitative assessment is moderately reduced (30-34%).Global LV systolic function moderately reduced . Left Atrium LA size is severely enlarged (>48 ml/m2) . Right Ventricle RV chamber size is moderately enlarged . RV is well visualized. Global RV systolicfunction is depressed. RV pacing wire is visualized . Right Atrium The RA is well visualized. RA cavity size is moderately enlarged. RA pacing wire is visualized. Aortic Valve A stented biologic AoV prosthesis is visualized. The prosthetic AoV appears well-seated. Moderateto severe para valvular aortic insufficiency. Thereis moderately raised raised aortic gradients,lekely due to AR and associated valvular stenosis. DI- 0.3. Peak/ mean gradient of 39/22 mmHg. Mitral Valve Normal MV structure and function. Trace mitral regurgitation. Tricuspid Valve Moderate tricuspid regurgitation. Estimated peak systolic PA pressure is 55-60 mmHg . Pulmonic Valve Normal PV structure and function by limitedviews and Doppler. Aorta Aortic root size (SInus of Valsalva diameter) is normal . Pericardium No pericardial effusion is visualized. IVC/SVC/PA/PV/Pleural The inferior vena cava is adequately visualized. The inferior vena cava size is increased . The estimated RA pressure by IVC [id number] . Chambers/Structures Left Atrium LA Volume: 138.93 ml LA Area: 35.69 cm^2 LA Vol. Index: 54 ml/m^2 Left Ventricle LVIDd: 5.76 cm LV Septum Diastolic: 1.22 cm LV PW Diastolic: 1.19 cm LVEDV BP Mcgregor's:183.79 ml LVESV BP Mcgregor's:118.63 ml LVEF BP Mcgregor's: 35 % LVOT Diameter: 2.2 cm Aorta Ao Root S of Gail.: 3.57 cm Shunts QS:90.09 ml Doppler/Quantitative Measurements Mitral Valve MV Peak E-Wave: 1.07 m/s Peak Gradient: 4.59 mmHg Aortic Valve Peak Velocity: 3.12 m/s Mean Velocity: 2.21 m/s Peak Gradient: 39.02 mmHg Mean Gradient: 22 mmHg AV Area (continuity): 1.15 cm^2 AV VTI: 78.14 cm AV DVI: 0.3 LVOT Peak Velocity: 0.95 m/s Peak Gradient: 3.61 mmHg Mean Velocity: 0.66 m/s Mean Gradient: 2.01 mmHg LVOT Diameter: 2.2 cm LVOT VTI: 23.7 cm LVOT Area: 3.8 cm^2 LVOT SV:90.05 ml LVOT CO: 5.58 l/min LVOT CI: 2.19 l/min/m^2 Tricuspid Valve TR Velocity: 3.3 m/s TR Gradient: 43.64 mmHg Venous doppler legs bilateral (05/10/2017 8:09 AM) Component Value Ref Range Ejection Fraction Specimen Performing Laboratory [facility] Imp[facility] Right Impression 1. There is no deep venous obstruction in the common femoral, profunda femoral, femoral, popliteal or posterior tibial veins. 2. The peroneal veins were not visualized. 3. There is no superficial venous obstruction in the great saphenous vein. Left Impression 1. There is no deep venous obstruction in the common femoral, profunda femoral, (proximal-mid) femoral or popliteal veins. 2. The distal femoral, posterior tibial and peroneal veins were not visualized. 3. There is no superficial venous obstruction in the great saphenous vein. Conclusions Summary Venous duplex imaging and compression of the bilateral lower extremities were performed. The veins were technically difficult to visualize due to edema and patient body habitus. The bilateral venous systems were patent and compressible with no evidence of thrombus where visualized. The venous Doppler waveforms were phasic with respiration . Signature Velocities are measured in cm/s ; Diameters are measured in cm Narrative [facility] - Lower Extremities DVT Study Demographics Patient Name Goyo MONROE of Study 05/10/2017 [id number] Age 71 Visit Number [id number] GenderMale Accession Number [id number] Date of 1945 ReferringSan Dimas Community Hospitalinessa Shah Number [id number] Lydia SonographerJaguar García. Zeus Dejesus MD, RVTPhysician RPVI Procedure Type of Study: Veins: Lower Extremities DVT Study, VENOUS DOPPLER LEG, BILATERAL. Indications for Study:Leg swelling. Patient Status:Routine. Study Location:Portable. Technical Quality:Technically Difficult. Risk Factors History of Disease +---------+----+ + !Diagnosis!Date!Comments ! +---------+----+ + !Other!!Chronic Venous Satsis with ulcers, HTN, DM, CKD, CHF, CAD, ! ! !!Morbid Obesity, Former Smoker, Pacemaker, Sepsis ! 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 Indications for Study:Leg swelling. Patient Status:Routine. Study Location:Portable. Technical Quality:Technically Difficult. Risk Factors History of Disease +---------+----+ + !Diagnosis!Date!Comments! +---------+----+ + !Other ! !Chronic Venous Satsis with ulcers, HTN, DM, CKD, CHF, CAD,! ! ! !Morbid Obesity, Former Smoker, Pacemaker, Sepsis! +---------+----+ + Impressions Right Impression 1. There is no deep venous obstruction in the common femoral, profunda femoral, femoral, popliteal or posterior tibial veins. 2. The peroneal veins were not visualized. 3. There is no superficial venous obstruction in the great saphenousvein. Left Impression 1. There is no deep venous obstruction in the common femoral, profunda femoral, (proximal-mid) femoral or popliteal veins. 2. The distal femoral, posterior tibial and peroneal veins were not visualized. 3. There is no superficial venous obstruction in the great saphenousvein. Conclusions Summary Venous duplex imaging and compression of the bilateral lowerextremities were performed. The veins were technically difficult to visualize dueto edema and patient body habitus. The bilateral venous systems werepatent and compressible with no evidence of thrombus where visualized. Thevenous Doppler waveforms were phasic with respiration . Signature Velocities are measured in cm/s ; Diameters are measured in cm Urine culture (05/10/2017 5:33 AM) Component Value Ref Range Result No growth Specimen Performing Laboratory Urine - Urine, Voided [address] [address] B-type natriuretic peptide (05/10/2017 1:36 AM) Component Value Ref Range BNP 4649(H) 0 - 100 pg/mL Specimen Performing Laboratory Blood - Central Venous Line [address] [address] TSH (05/10/2017 1:30 AM) Component Value Ref Range TSH 16.06(H) 0.35 - 4.94 uIU/mL Specimen Performing Laboratory Blood - Central Venous Line [address] [address] ECG 12 lead (05/10/2017 1:22 AM) Specimen Performing Laboratory GE MUSE Narrative Ventricular Rate 60 BPM Atrial Rate 60 BPM P-R Interval 114 ms QRS Duration 144 ms Q-T Interval 510 ms QTC Calculation(Bazett) 510 ms R [place] 269 degrees T [place] 93 degrees AV sequential or dual chamber electronic pacemaker with intermittent atrial sensing. No previous ECGs available Confirmed by Pj ROMERO MICHAEL ([id number]) on 05/10/2017 7:38:37 AM Procedure Note Interface, External Ris In - 05/10/2017 7:38 AM CDT Ventricular Rate 60 BPM Atrial Rate 60 BPM P-R Interval 114 ms QRS Duration 144 ms Q-T Interval 510 ms QTC Calculation(Bazett) 510 ms R [place] 269 degrees T [place] 93 degrees AV sequential or dual chamber electronic pacemaker with intermittentatrial sensing. No previous ECGs available Confirmed by Pj ROMERO MICHAEL ([id number]) on 05/10/2017 7:38:37 AM from Last 3 Months
--- OUTSIDE RECORDS SUMMARY | 2017-05-13 18:08 | XMS | Clinical Summary ---
:1945 Author Organization [facility] Address [address] [place] [address] Phone Care Team Providers Name Role Phone , Primary Care Provider Unavailable Allergies Not on File Current Medications Not on file Active Problems Not on file Social History Tobacco Use Types Packs/Day Years Used Date Never Assessed Sex Assigned at Date Recorded Not on file Last Filed Vital Signs Not on file Plan of Treatment Not on file Results Not on filefrom Last 3 Months
== END 2017-05-09 21:15 | disposition short-term general hospital (02) | DRG 291 ==
LOC: ERS 15:03 → 2NO 21:23
PROVIDERS: ADMIT Internal Medicine; ATTEND Internal Medicine
PROC: 02PY33Z Removal of Infusion Device from Great Vessel, Percutaneous Approach (ICD-10-PCS; principal; 2017-05-05)
PROC: 02HV33Z Insertion of Infusion Device into Superior Vena Cava, Percutaneous Approach (ICD-10-PCS; 2017-05-05)
DX: I13.0 Hypertensive heart and chronic kidney disease with heart failure and stage 1 through stage 4 chronic kidney disease, or unspecified chronic kidney disease (principal); I50.43 Acute on chronic combined systolic (congestive) and diastolic (congestive) heart failure; J96.21 Acute and chronic respiratory failure with hypoxia; G93.41 Metabolic encephalopathy; N18.4 Chronic kidney disease, stage 4 (severe); E11.22 Type 2 diabetes mellitus with diabetic chronic kidney disease; R78.81 Bacteremia; T82.7XXA Infection and inflammatory reaction due to other cardiac and vascular devices, implants and grafts, initial encounter; I27.20 Pulmonary hypertension, unspecified; I48.2 Chronic atrial fibrillation; B35.3 Tinea pedis; L03.119 Cellulitis of unspecified part of limb; L97.919 Non-pressure chronic ulcer of unspecified part of right lower leg with unspecified severity; L97.929 Non-pressure chronic ulcer of unspecified part of left lower leg with unspecified severity; Z68.41 Body mass index [BMI] 40.0-44.9, adult; E11.649 Type 2 diabetes mellitus with hypoglycemia without coma; E03.9 Hypothyroidism, unspecified; Z79.4 Long term (current) use of insulin; Z87.891 Personal history of nicotine dependence; I87.2 Venous insufficiency (chronic) (peripheral); Z95.810 Presence of automatic (implantable) cardiac defibrillator; Z95.2 Presence of prosthetic heart valve; Z79.01 Long term (current) use of anticoagulants; Z88.8 Allergy status to other drugs, medicaments and biological substances; Z91.048 Other nonmedicinal substance allergy status; K46.9 Unspecified abdominal hernia without obstruction or gangrene; E87.6 Hypokalemia; D53.9 Nutritional anemia, unspecified; G47.33 Obstructive sleep apnea (adult) (pediatric); I35.0 Nonrheumatic aortic (valve) stenosis; I25.10 Atherosclerotic heart disease of native coronary artery without angina pectoris; I25.5 Ischemic cardiomyopathy; E66.01 Morbid (severe) obesity due to excess calories; J44.9 Chronic obstructive pulmonary disease, unspecified
CPT/HCPCS: 36415; 36416; 36569; 36584; 70450; 71010; 80048; 81003; 81015; 83605; 83735; 83880; 84100; 84439; 84443; 84481; 85007; 85025; 85027; 87040; 87070; 87086; 87205; 93005; 96361; 96374; A4216; C1751; G8978-GP-CK; G8979-GP-CJ; G8987-GO-CM; G8988-GO-CK; J0290; J0696; J1644; J1815; J1940; J2248; J3475; J7050